=== PATIENT | female | born 1980 | race Caucasian/White ===

== ENCOUNTER 2020-03-19 14:52 | Outpatient (CLI) | payer OTHER, SELFPAY ==
--- NOTE | 2020-03-19 14:57 | MM_ITS ---
WS: [id number] BILATERAL DIGITAL SCREENING MAMMOGRAPHY WITH CAD CLINICAL INFORMATION: SCREENING HISTORY: Screening mammogram. No current complaints. COMPARISON: None. TECHNIQUE: Bilateral CC and MLO views. FINDINGS: The breasts are composed of heterogeneous fibroglandular density tissue, which can limit the detectio n of small underlying mass lesions. No suspicious mass, asymmetry, calcifications, or architectural d istortion. No evidence of malignancy. MM/[place] [id number] IMPRESSION: BI-RADS: 1-Negative FOLLOW UP: 1 Year Follow-up Recommend return to annual screening mammography.
== END 2020-03-19 14:53 | disposition home or self-care (01) ==
LOC: RADSHAW 14:55
PROVIDERS: PCP Family Medicine; Visit Provider Family Medicine
DX: Z12.31 Encounter for screening mammogram for malignant neoplasm of breast (principal)
CPT/HCPCS: 77067

== ENCOUNTER 2021-05-29 13:35 | Emergency (ER) | payer OTHER, SELFPAY ==
[2021-05-29] VITALS (9 sets, daily range): BP systolic 99–124; BP diastolic 70–88; PULSE 77–95; RESP 15–25; TEMP 36.7–36.8; O2SAT 92–100; BMI 25.0
--- NOTE | 2021-05-29 | XR_ITS ---
WS: [id number] Portable AP upright chest, 05/29/2021 Clinical Data: DYSPNEA Comparison: Portable chest, 01/17/2017. Findings: No nodules, masses or effusions are seen. The heart is normal. The pulmonary vascularity is not increased. No pneumonia or pneumothorax is seen. Monitor leads are on the chest wall. XR/XR chest 1V portable [id number] Impression: Negative chest.
--- NOTE | 2021-05-29 14:14 | ECG_ITS ---
[facility] Test Date: 2021-05-29 Pat Name: Elizabeth Carlson Department: Room: Gender: Female Parts Advisor: : 1980 Requested By: Antoine Ponce Order Number: [id number] Paras MD: Suzy Marion M.D. Measurements Intervals [place] Rate: 78 P: 9 NE: 148 QRS: 72 QRSD: 79 T: 54 QT: 385 QTc: 440 Interpretive Statements SINUS RHYTHM NONSPECIFIC T-WAVE ABNORMALITY Compared to ECG 01/17/2017 22:38:28 No significant changes Electronically Signed On 05-29-2021 20:37:11 CDT by Suzy Marion M.D. [id number]
--- NOTE | 2021-05-29 14:14 | XR_ITS ---
WS: [id number] Portable AP upright chest, 05/29/2021 Clinical Data: dypsnea Comparison: Portable chest, 01/17/2017. Findings: The heart is enlarged. The pulmonary vascularity is slightly increased. No pneumonia is pre sent. There is bilateral pleural thickening. There are small bilateral pleural effusions. The aortic arch and descending thoracic aorta are slightly tortuous. No pneumothorax is seen.
--- NOTE | 2021-05-29 14:14 | CT_ITS ---
WS: [id number] CT HEAD TECHNIQUE: Noncontrast CT of the head obtained from the skullbase to the vertex. CLINICAL INFORMATION: Symptoms of Acute Stroke COMPARISON: None. DLP: 847.[address] scans at [facility] use at least one of these dose optimization techniques: automated e xposure control; mA and/or kV adjustment per patient size (includes targeted exams where dose is matc hed to clinical indication); or iterative reconstruction. FINDINGS: No evidence of intracranial hemorrhage or mass effect. Ventricular system and basal cisterns are aguilera nt. No extra-axial fluid collections. No evidence of mass or mass effect. Normal flowers-white different iation. Paranasal sinuses and mastoid air cells are well aerated. .Normal visualized soft tissues. CT/CT head wo con* [id number] IMPRESSION: 1. No evidence of intracranial hemorrhage or mass effect. 2. Normal flowers-white differentiation. 3. No acute intracranial findings. Notification Antoine Hooks DO at 05/29/2021 2:41 PM.
--- NOTE | 2021-05-29 14:45 | W.ED.NEUROSD ---
HPI - Neuro Symptoms/Deficit General: Chief Complaint: Neuro Symptoms/Deficit Stated Complaint: H/A CONFUSION Time Seen by Provider: 05/29/21 14:11 History of Present Illness: HPI Narrative: 41-year-old female presents emergency room complaining of weakness on her left side difficulty with speech. She has a history of migraines she had a bit of a headache today but not what she would typically consider a migraine. She took several pcdo-cwh-tjntvhu medications for with no significant relief however it eventually did just seem to resolve on its own she does not have any pain now. She did have some pain earlier behind the left eye with associated visual changes. Her is with her and reports that she had some slurring of her speech but it has normalized with the time we seen him. Onset (ago): minute(s) Location: speech Severity: mild Quality: weak and improving Relieving factors: none Exacerbating factors: none Context: gradual onset Associated symptoms: Reports headache(s) and tingling; Deny chest pain, cough, diaphoresis, fevers/chills, anorexia, malaise, nausea, seizures, short of breath, syncope, vertigo, vomiting or weakness Treatments Prior to Arrival: Aspirin and other medication Review of Systems Const: Denies: malaise or diaphoresis ENMT: Denies: throat pain, ear or mastoid pain, nasal discharge or nasal congestion Card: Denies: chest pain or syncope Resp: Denies: dyspnea, productive cough or non-productive cough GI: Denies: nausea or vomiting : Denies: flank pain, difficulty voiding, dysuria, urinary frequency or urinary urgency Skin/Breast: Denies: rash or pruritus Neuro: Reports: headache(s); Denies: vertigo PFS ED PFSH: Medical History Psychiatric care Social History Smoking and tobacco status: never smoked Quit status (tobacco): has quit using tobacco Year quit tobacco: 2013 Second hand smoke exposure: No Smoking risk assessment/counseling performed?: No Alcohol intake: never Current gender identity: Female NIH stroke score NIHSS: Level Of Consciousness - 1a: 0 Level Of Consciousness Questions - 1b: Both Correct Level Of Consciousness Commands - 1c: Both Correct Best Gaze - 2: Normal Visual Puga - 3: No Visual Loss Facial Palsy - 4: Normal Motor Arm Right - 5: No Drift Motor Arm Left - 5: No Drift Motor Leg Right - 6: No Drift Motor Leg Left - 6: No Drift Limb Ataxia - 7: Absent Sensory - 8: Normal Best Language - 9: No Aphasia Dysarthia - 10: Normal Extinction And Inattention - 11: 0 Score: Total Score: 0 Physical Exam Const: COMMON NORMALS: no acute distress GENERAL APPEARANCE: cooperative and comfortable ORIENTATION/CONSCIOUSNESS: Yes awake, Yes oriented to person, Yes oriented to place and Yes oriented to time HENMT: COMMON NORMALS: normocephalic, atraumatic, hearing grossly normal bilaterally and external ears normal HEAD & SCALP: normocephalic and atraumatic EXTERNAL EAR: Yes external ears normal Eye: COMMON NORMALS: Equal, round and reactive pupils present, EOMs intact bilaterally, conjunctivae normal and no scleral icterus CONJUNCTIVA: Yes conjunctivae normal PUPIL: Yes Equal, round and reactive pupils present Neck/C-Spine: COMMON NORMALS: no JVD Resp: COMMON NORMALS: normal respiratory effort, No retractions, No use of accessory muscles and clear to auscultation bilaterally AUSCULTATION: clear to auscultation bilaterally Cardio: COMMON NORMALS: no JVD, regular rate, regular rhythm and No murmurs present (Cardio) RATE: regular rate RHYTHM: regular rhythm GI: COMMON NORMALS: Soft to palpation and No hepatosplenomegaly present AUSCULTATION: Yes normoactive bowel sounds PALPATION: Yes Soft to palpation, No Tenderness to palpation present (GI), No Guarding due to palpation present (GI) and Yes No hepatosplenomegaly present Extremity: COMMON NORMALS: normal to inspection, capillary refill normal, no clubbing, cyanosis or edema, no calf tenderness and no pedal edema Neuro: SENSORIUM/ORIENTATION: Yes oriented to person, Yes oriented to place and Yes oriented to time Skin: COMMON NORMALS: no rashes or lesions noted GENERAL SKIN EXAM: no rashes or lesions noted Course Vital Signs: Vital signs: Vital Signs Temperature 98.2 F 05/29/21 19:29 Pulse Rate 85 05/29/21 19:29 Respiratory Rate 16 05/29/21 19:29 Blood Pressure 117/78 05/29/21 19:29 Pulse Oximetry 96 05/29/21 19:29 MDM - Neuro Symptoms/Deficit MDM Narrative: Medical decision making narrative: Initially patient reported only mild headache during the course of the work-up however progressed to full-blown migraine when she has had in the past. Neurologically intact no focal neurologic deficits noted and her stroke score is 0. I think this is a migraine variant. Discussed the findings on the imaging and labs on the chart as they were reviewed. We will go ahead and treat for her migraine and then patient discharged home. Follow-up with your primary care doctor. Lab Data: Labs: Lab Results 05/29/21 05/29/21 05/29/21 14:25 14:25 14:25 WBC 6.4 10^3/uL 10^3/ uL (4.0-10.0) RBC 4.17 10^6/uL 10^6 /uL (4.1-5.3) Hgb 13.6 g/dL g/dL (11.5-15.3) Hct 40.8 % % (37.0-47.0) MCV 97.8 fl fl (81-99) MCH 32.6 pg pg (28.0-34.0) MCHC 33.3 g/dL g/dL (30.0-36.0) RDW 12.0 % L % (12.1-15.1) Plt Count 180 10^3/cmm 10^3 /cmm (130-400) MPV 11.3 fL H fL (7.4-10.4) Neut % (Auto) 53.1 % % Lymph % (Auto) 36.2 % % [place] % (Auto) 7.0 % % Eos % (Auto) 2.6 % % Baso % (Auto) 0.5 % % Neut # (Auto) 3.42 10^3/uL 10^3 /uL (1.8-7.7) Lymph # (Auto) 2.3 10^3/uL 10^3/ uL (0.8-4.8) [place] # (Auto) 0.5 10^3/uL 10^3/ uL (0.2-0.9) Eos # (Auto) 0.2 10^3/uL 10^3/ uL (0.0-0.8) Baso # (Auto) 0.0 10^3/uL 10^3/ uL (0.0-0.1) Nucleated RBC % (a uto) 0 % % Nucleated RBCs # 0.0 /100WBC /100W BC PT 13.50 SECONDS SEC ONDS (12.1-14.9) INR 1.00 (0.8-1.2) APTT 25.6 SECONDS SECO NDS (23.9-36.7) Sodium 137 mmol/L mmol/L (136-145) Potassium 3.8 mmol/L mmol/L (3.5-5.1) Chloride 104 mmol/L mmol/L (98-107) Carbon Dioxide 25 mmol/L mmol/L (22-29) Anion Gap 11.8 (5-19) BUN 16 mg/dL mg/dL (6-20) Creatinine 0.9 mg/dL mg/dL (0.5-0.9) GFR Calculation 68.7 mL/min L mL/ min (90-130) Glucose 88 mg/dL mg/dL (65-115) Calculated Osmolal ity 285 mOsm/kg mOsm/ kg (285-295) Calcium 9.3 mg/dL mg/dL (8.5-10.5) Total Bilirubin 0.2 mg/dL mg/dL (0.15-1.2) AST 13 U/L U/L (0-32) ALT 18 U/L U/L (0-33) Alkaline Phosphata se 64 IU/L IU/L (35-105) Total Protein 6.4 g/dL L g/dL (6.6-8.7) Albumin 4.2 g/dL g/dL (3.5-5.2) Globulin 2.2 g/dL g/dL (1.3-4.6) Urine Color Urine Appearance Urine pH Ur Specific Gravit y Urine Protein Urine Glucose (UA) Urine Ketones Urine Blood Urine Nitrate Urine Bilirubin Urine Urobilinogen Ur Leukocyte Shanda ase Urine Opiates Scre en Ur Barbiturates Sc reen Ur Phencyclidine S crn Ur Amphetamines Sc reen U Benzodiazepines Scrn Urine Cocaine Scre en U Marijuana (THC) Screen 05/29/21 05/29/21 14:25 14:25 WBC RBC Hgb Hct MCV MCH MCHC RDW Plt Count MPV Neut % (Auto) Lymph % (Auto) [place] % (Auto) Eos % (Auto) Baso % (Auto) Neut # (Auto) Lymph # (Auto) [place] # (Auto) Eos # (Auto) Baso # (Auto) Nucleated RBC % (a uto) Nucleated RBCs # PT INR APTT Sodium Potassium Chloride Carbon Dioxide Anion Gap BUN Creatinine GFR Calculation Glucose Calculated Osmolal ity Calcium Total Bilirubin AST ALT Alkaline Phosphata se Total Protein Albumin Globulin Urine Color Yellow (Yellow) Urine Appearance Clear (CLEAR) Urine pH 5 (5-7) Ur Specific Gravit y 1.020 (1.005-1.030) Urine Protein Neg (Negative) Urine Glucose (UA) Norm (Normal) Urine Ketones Negative (Negative) Urine Blood Neg (Negative) Urine Nitrate Negative (Negative) Urine Bilirubin Neg (Negative) Urine Urobilinogen Norm mg/dL mg/dL (Negative) Ur Leukocyte Shanda ase Negative (Negative) Urine Opiates Scre en Negative ng/mL ng /mL (Negative) Ur Barbiturates Sc reen Negative ng/mL ng /mL (Negative) Ur Phencyclidine S crn Negative ng/mL ng /mL (Negative) Ur Amphetamines Sc reen Negative ng/mL ng /mL (Negative) U Benzodiazepines Scrn Negative ng/mL ng /mL (Negative) Urine Cocaine Scre en Negative ng/mL ng /mL (Negative) U Marijuana (THC) Screen Positive ng/mL H ng/mL (Negative) Discharge Plan Discharge Patient Disposition: Home Clinical Impression: Migraine variant Condition: Stable Prescriptions: No Action omega-3 fatty acids [Fish Oil Concentrate] 1,000 mg capsule 1,000 mg PO DAILY RF: 0 cholecalciferol (vitamin D3) 10 mcg (400 unit) tablet 10 mcg PO DAILY RF: 0 prenat.vits,yessy,tjl-exus-hhxnv Tablet 1 tab PO DAILY RF: 0 buspirone 15 mg tablet 15 mg PO BID Qty: 180 RF: 1 propranolol 20 mg tablet 20 mg PO TID PRN (Reason: anxiety) Qty: 90 RF: 2 topiramate [Topamax] 50 mg tablet 50 mg PO BID Qty: 180 RF: 1 venlafaxine [Effexor XR] 150 mg capsule,extended release 24hr 300 mg PO DAILY Qty: 180 RF: 1 trazodone 150 mg tablet 150 mg PO BEDTIME RF: 0 Discharge Orders: Discharge ED (Routine); Ordered 05/29/21 Ordered By: Antoine Hooks Patient Instructions: Opioid Safety Coding Level of Care Code ED Language And Literature Division Chair for Chg Fwd Exam Comprehensive
[2021-05-29 15:03] LABS: Basophils % 0.5 %; Eosinophils # 0.2 10^3/uL (0.0-0.8); Eosinophils % 2.6 %; Hematocrit 40.8 % (37.0-47.0); Hemoglobin 13.6 g/dL (11.5-15.3); Lymphocytes # 2.3 10^3/uL (0.8-4.8); Lymphocytes % 36.2 %; Mean Corpuscular HGB Conc 33.3 g/dL (30.0-36.0); Mean Corpuscular Hemoglobin 32.6 pg (28.0-34.0); Mean Corpuscular Volume 97.8 fl (81-99); Mean Platelet Volume 11.3 fL (7.4-10.4); Monocytes # 0.5 10^3/uL (0.2-0.9); Neutrophils # 3.42 10^3/uL (1.8-7.7); Neutrophils % 53.1 %; Nucleated Red Blood Cells % 0 %; Platelet Count 180 10^3/cmm (130-400); Red Blood Count 4.17 10^6/uL (4.1-5.3); White Blood Count 6.4 10^3/uL (4.0-10.0)
[2021-05-29 15:08] LABS: Add Urine Microscopic? NO; Charge for UA Resulting for Rev
--- NOTE | 2021-05-29 15:10 | PC.NURSE ---
Received report from Camilo waiting on results.
[2021-05-29 15:11] LABS: Bilirubin Urine Neg (Negative); Blood Urine Neg (Negative); Glucose Urine UA Norm (Normal); Ketones Urine Negative (Negative); Leukocyte Esterase Urine Negative (Negative); Nitrate Urine Negative (Negative); Protein Urine Neg (Negative); Urine Appearance Clear (CLEAR); Urine Color Yellow (Yellow); Urobilinogen Urine Norm (Negative); pH Urine 5 (5-7)
[2021-05-29 15:20] LABS: Amphetamines Screen Urine Negative (Negative); Barbiturates Screen Urine Negative (Negative); Benzodiazepines Screen Urine Negative (Negative); Cocaine Screen Urine Negative (Negative); Opiate Screen Urine Negative (Negative); PCP Screen Urine Negative (Negative); THC Screen Urine Positive (Negative)
[2021-05-29 15:34] LABS: Partial Thromboplastin Time 25.6 SECONDS (23.9-36.7)
[2021-05-29 15:38] LABS: Alanine Aminotransferase 18 U/L (0-33); Albumin Level 4.2 g/dL (3.5-5.2); Alkaline Phosphatase 64 IU/L (35-105); Anion Gap 11.8 (5-19); Aspartate Amino Transferase 13 U/L (0-32); Blood Urea Nitrogen 16 mg/dL (6-20); Calcium 9.3 mg/dL (8.5-10.5); Carbon Dioxide 25 mmol/L (22-29); Chloride 104 mmol/L (98-107); Globulin 2.2 g/dL (1.3-4.6); Glomerular Filtration Rate 68.7 mL/min (90-130); Glucose 88 mg/dL (65-115); Osmolality Calculated 285 mOsm/kg (285-295); Potassium 3.8 mmol/L (3.5-5.1); Sodium 137 mmol/L (136-145); Total Bilirubin 0.2 mg/dL (0.15-1.2); Total Protein 6.4 g/dL (6.6-8.7)
--- NOTE | 2021-05-29 16:27 | PC.NURSE ---
at bedside. Pt waiting on results. No needs, except I haven't received medication yet . Reviewed with pt waiting for results. No change in pain per pt affected by the light, pt stated she has a history of H/A and follows up with Neurologist in the past.
[2021-05-29] MEDS: sodium chloride 0.9% 1,000 ML 999 ML IV (17:51)
[2021-05-29] MEDS: ketorolac 30 mg/mL INJ IVP (17:52)
[2021-05-29] MEDS: diphenhydrAMINE 50 mg/mL SDV 1mL IVP (17:55)
[2021-05-29] MEDS: promethazine 25 mg/mL SDV 1 mL IM (17:58)
== END 2021-05-29 19:31 | disposition home or self-care (01) ==
PROVIDERS: Emergency Provider Family Medicine
DX: G43.809 Other migraine, not intractable, without status migrainosus (principal); Z87.891 Personal history of nicotine dependence
CPT/HCPCS: 70450; 71045; 80053; 80306; 81003; 85025; 85610; 85730; 93005; 96361; 96372; 96374; 99284; J1200; J1885; J2550; J7030

== ENCOUNTER → 2021-11-21 14:56 | Outpatient (BNVA) | payer OTHER, SELFPAY | PROVIDERS: Visit Provider Psychiatry & Neurology Psychiatry | DX: F41.1 Generalized anxiety disorder (principal); F33.1 Major depressive disorder, recurrent, moderate | CPT/HCPCS: 84443 ==

== ENCOUNTER 2022-11-20 09:40 | Outpatient (CLI) | payer OTHER, SELFPAY ==
--- NOTE | 2022-11-20 | XR_ITS ---
WS: [id number] Chest 2 views, 11/20/2022 Clinical Data: SUBACUTE COUGH Comparison: Portable chest, 05/29/2021 Findings: No nodules, masses or effusions are seen. The heart is normal. The pulmonary vascularity is not increased. No pneumonia or pneumothorax is seen. XR/XR chest 2V* [id number] Impression: Negative chest.
--- NOTE | 2022-11-20 09:49 | MM_ITS ---
WS: [id number] BILATERAL SCREENING DIGITAL TOMOSYNTHESIS MAMMOGRAM WITH CAD HISTORY: SCREENING COMPARISON: 03/19/2020 Bilateral CC and MLO views with tomosynthesis and synthetic mammography submitted. Computer aided det ection analyzed. Breast composition: The breasts are heterogeneously dense, which may obscure small masses. No suspici ous masses, microcalcifications or architectural distortion. Bilateral upper outer quadrant lymph nod es. MM/[place] [id number] IMPRESSION: BI-RADS: 2-Benign FOLLOW UP: 1 Year Follow-up
== END 2022-11-20 09:41 | disposition home or self-care (01) ==
PROVIDERS: PCP Family Medicine; Visit Provider Family Medicine
DX: Z12.31 Encounter for screening mammogram for malignant neoplasm of breast (principal); R05.9 Cough, unspecified
CPT/HCPCS: 71046; 77063; 77067

== ENCOUNTER 2023-06-01 22:43 | Emergency (ER) | payer OTHER, SELFPAY ==
[2023-06-01 22:51] VITALS: BP 107/74; PULSE 110; RESP 18; TEMP 36.6; O2SAT 97; BMI 24.7
--- NOTE | 2023-06-01 22:52 | ED_ITS ---
HPI - Headache General: Chief Complaint: Headache Stated Complaint: Head and Neck Pain Time Seen by Provider: 06/01/23 22:52 History of Present Illness: 43-year-old female comes in today for complaints of severe headache with neck discomfort for the last 2 days. Patient gone to the chiropractor yesterday and today with no improvement in her neck or headache pain. Patient reports right- sided headache. Patient does have a history of migraine headaches. Patient reports that this is the worst headache she is ever had. Patient appears nontoxic. No focal neural deficits are noted. Patient is sensitive to light. Associated symptoms: Reports nausea; Deny chest pain, fever(s) or vomiting Review of Systems Const: Denies: fever(s) Card: Denies: chest pain Resp: Denies: dyspnea GI: Reports: nausea; Denies: vomiting Musc: Reports: neck pain Neuro: Reports: headache(s) PFS ED PFSH: Medical History Psychiatric care Social History Smoking and tobacco status: former smoker Quit status (tobacco): has quit using tobacco Year quit tobacco: 2013 Second hand smoke exposure: No Smoking risk assessment/counseling performed?: No Alcohol intake: never Desire information about alcohol rehabilitation?: No Counseling given: No Substance/Drug Use: never Desire information about substance/drug rehabilitation?: No Counseling given: No Current gender identity: Female Physical Exam Const: COMMON NORMALS: alert HENMT: COMMON NORMALS: normocephalic HEAD & SCALP: normocephalic Neck/C-Spine: COMMON NORMALS: full ROM and no meningeal signs CERVICAL SPINE: No Cervical spine tenderness and Yes Paracervical muscle tenderness Resp: COMMON NORMALS: normal respiratory effort and clear to auscultation bilaterally AUSCULTATION: clear to auscultation bilaterally Cardio: COMMON NORMALS: regular rate and regular rhythm RATE: regular rate RHYTHM: regular rhythm GI: COMMON NORMALS: non-tender Back/Pelvis: COMMON NORMALS: thoracic and lumbar spine normal to inspection Neuro: SENSORIUM/ORIENTATION: Yes alert MENINGEAL SIGNS: Yes no meningeal signs Skin: COMMON NORMALS: turgor normal GENERAL SKIN EXAM: turgor normal Course Vital Signs: Vital signs: Vital Signs Temperature 97.9 F 06/02/23 01:13 Pulse Rate 110 H 06/02/23 01:13 Respiratory Rate 18 06/02/23 01:13 Blood Pressure 107/74 06/02/23 01:13 Pulse Oximetry 97 06/02/23 01:13 Oxygen Delivery Me thod Room Air 06/01/23 22:51 MDM - Headache Medical Decision Making 43-year-old female comes in today for complaints of headache and neck pain. Patient reports increased neck and headache pain over the last 2 days. Patient denies any injuries or fall. Patient did seek treatment at chiropractor. Patient does have a history of migraines. No focal neural deficits are noted. Patient is light sensitive. Bilateral TMs are normal. Abdomen soft nontender. Patient has muscle tenderness on the right paracervical muscles. Differential diagnosis includes not limited to subarachnoid hemorrhage, dissected vertebral artery of the neck, tension headache, migraine headache. CT of the head was normal. CT of the cervical spine and noticed several areas of cervical degeneration of the disks. There is some stenosis noted in the facet joints. Patient was medicated for a migraine cocktail with improvement of symptoms. Patient be continued on steroids and celecoxib for pain and inflammation. Patient was also written for a few hydrocodone for severe pain. Patient was recommended to follow-up with primary care for further evaluation and treatment regarding the neck pain. Lab Data Radiology Impressions Cervical Spine CT 06/01/23 23:00 IMPRESSION: 1. No acute cervical spine fracture or spondylolisthesis. 2. Cervical spondylosis as described above. Head CT 06/01/23 23:00 IMPRESSION: No acute intracranial findings. All radiology interpretation(s) finalized by discharge Discharge Plan Discharge Patient Disposition: Home Clinical Impression: Degenerative cervical disc Headache Qualifiers: Headache type: unspecified Headache chronicity pattern: acute headache Intractability: not intractable Qualified Code(s): R51.9 - Headache, unspecified Condition: Stable Prescriptions: New prednisone 20 mg tablet 20 mg PO BID 5 Days Qty: 10 0RF celecoxib 200 mg capsule 200 mg PO BID Qty: 20 0RF hydrocodone-acetaminophen 5-325 mg tablet 1 tab PO Q8H PRN (Reason: pain (scale score 7-10)) Qty: 6 0RF No Action prenat.vits,yessy,tpb-hedr-yijoc Tablet 1 tab PO DAILY cholecalciferol (vitamin D3) 10 mcg (400 unit) tablet 10,000 unit PO DAILY Aimovig Autoinjector 70 mg/mL auto-injector SUBCUT .Monthly bupropion HCl [Wellbutrin XL] 300 mg tablet extended release 24 hr 300 mg PO QAM Qty: 90 0RF buspirone 10 mg tablet 10 mg PO BID Qty: 180 0RF trazodone 150 mg tablet 150 mg PO BEDTIME Qty: 90 0RF venlafaxine [Effexor XR] 150 mg capsule,extended release 24hr 300 mg PO DAILY Qty: 180 0RF propranolol 20 mg tablet 20 mg PO TID PRN (Reason: anxiety) Qty: 90 2RF topiramate 100 mg tablet 100 mg PO BID Qty: 60 2RF Discharge Orders: Discharge ED (Routine); Ordered 06/02/23 Ordered By: Antonino Robb Referrals: Sana Carrasco DO [Primary Care Provider] - Patient Instructions: Opioid Safety, Pain Management Coding Level of Care Code ED Viner Operator for Alyssa Pierce
--- NOTE | 2023-06-01 23:00 | CTR_ITS ---
PROCEDURE INFORMATION: Exam: CT Head Without Contrast Exam date and time: 06/01/2023 11:38 PM Age: 43 years old Clinical indication: Pain; Headache not specified; Additional info: Severe headache TECHNIQUE: Imaging protocol: Computed tomography of the head without contrast. Radiation optimization: All CT scans at this facility use at least one of these dose optimization techniques: automated exposure control; mA and/or kV adjustment per patient size (includes targeted exams where dose is matched to clinical indication); or iterative reconstruction. REPORTING DATA: Count of CT and Cardiac NM exams in prior 12 months: This patient has received 0 known CTs and 0 known cardiac nuclear medicine studies in the 12 months prior to the current study. COMPARISON: CT head wo con* [id number] 05/29/2021 2:25 PM RADIATION DOSE METRICS: Total DLP (mGy-cm): 1095.58 FINDINGS: Brain: No acute intracranial hemorrhage, abnormal extra-axial fluid collection, mass effect, or midline shift. Cerebral ventricles: The ventricular system is within normal limits of variation for the patient's age. Paranasal sinuses: Visualized paranasal sinuses are grossly unremarkable. No air fluid levels. Mastoid air cells: Visualized mastoid air cells are well aerated. Bones/joints: No acute fracture. Soft tissues: Grossly unremarkable. CT/CT head wo con* [id number] IMPRESSION: No acute intracranial findings.
--- NOTE | 2023-06-01 23:00 | CTR_ITS ---
PROCEDURE INFORMATION: Exam: CT Cervical Spine Without Contrast Exam date and time: 06/01/2023 11:41 PM Age: 43 years old Clinical indication: Neck pain and other: Headache; Additional info: Severe headache with neck pain TECHNIQUE: Imaging protocol: Computed tomography of the cervical spine without contrast. Radiation optimization: All CT scans at this facility use at least one of these dose optimization techniques: automated exposure control; mA and/or kV adjustment per patient size (includes targeted exams where dose is matched to clinical indication); or iterative reconstruction. REPORTING DATA: Count of CT and Cardiac NM exams in prior 12 months: This patient has received 0 known CTs and 0 known cardiac nuclear medicine studies in the 12 months prior to the current study. COMPARISON: CT head wo con* [id number] 06/01/2023 11:38 PM RADIATION DOSE METRICS: Total DLP (mGy-cm): 200.97 FINDINGS: Bones/joints: No acute cervical spine fracture or spondylolisthesis. Multilevel intervertebral disc space narrowing along with posterior disc osteophyte complexes, uncovertebral joint hypertrophic changes, and facet arthropathy appears to result in up to severe stenosis of the neural foramina. No spinal canal stenosis. Lungs: Lung apices are grossly unremarkable. Soft tissues: Grossly unremarkable. CT/CT cervical spin wo con* [id number] IMPRESSION: 1. No acute cervical spine fracture or spondylolisthesis. 2. Cervical spondylosis as described above.
[2023-06-01] MEDS: ketorolac 30 mg/mL INJ 15 MG IVP (23:08)
[2023-06-01] MEDS: diphenhydrAMINE 50 mg/mL SDV 1mL 12.5 MG IVP (23:08)
[2023-06-01] MEDS: dexamethasone 10 mg/mL INJ 6 MG IVP (23:13)
[2023-06-01] MEDS: metoclopramide 5 mg/mL SDV 2 mL 10 MG IVP (23:17)
[2023-06-02 01:13] VITALS: BP 107/74; PULSE 110; RESP 18; TEMP 36.6; O2SAT 97
== END 2023-06-02 01:20 | disposition home or self-care (01) ==
PROVIDERS: Emergency Provider Nurse Practitioner Family; PCP Family Medicine
DX: M47.812 Spondylosis without myelopathy or radiculopathy, cervical region (principal); Z87.891 Personal history of nicotine dependence; R51.9 Headache, unspecified
CPT/HCPCS: 70450; 72125; 96374; 96375; 99285; J1100; J1200; J1885; J2765

== ENCOUNTER → 2024-08-07 15:07 | Outpatient (BNVA) | payer OTHER, SELFPAY | PROVIDERS: PCP Family Medicine; Visit Provider Specialist | DX: M25.561 Pain in right knee (principal); M25.562 Pain in left knee; G89.29 Other chronic pain | CPT/HCPCS: 73560; 73565 ==

== ENCOUNTER 2024-08-23 08:24 | Day surgery (SDC) | payer OTHER, SELFPAY ==
[2024-08-23] VITALS (9 sets, daily range): BP systolic 102–123; BP diastolic 68–81; PULSE 87–99; RESP 13–18; TEMP 36.1–36.2; O2SAT 97–100
[2024-08-23] MEDS: sodium chloride 0.9% 500 ML 15 ML IV (09:00)
[2024-08-23] MEDS: ondansetron 2 mg/ML SDV 2 mL 4 MG IVP ×2 (09:02→11:44)
--- NOTE | 2024-08-23 09:51 | W.PM.OPSUD ---
Surgery/Procedure H&P Update DATE OF PROCEDURE: August 23, 2024 DATE H&P PERFORMED: 08/14/24 H&P UPDATE INFORMATION: I have reviewed H&P completed within last 30 days, I have examined patient prior to procedure and No changes to prior documentation PLANNED PROCEDURE: Operation Date: 08/23/24 09:30 Proposed Procedures p EGD [id number], 20310, G0105, K92.1(Not Applicable) - DO andrea Ramírez Colonoscopy(Not Applicable) - Blaise Huber DO
--- NOTE | 2024-08-23 09:57 | P.ANESASSM_ITS ---
Pre-Anesthetic Assessment Height/Weight: Height 1.7 m Weight 65.771 kg Temp Pulse Resp BP Pulse Ox 97.1 F L 97 18 103/77 100 08/23/24 08:45 08/23/24 08:45 08/23/24 08:45 08/23/24 08:45 08/23/24 08:45 Operation Date: 08/23/24 09:30 Proposed Procedures p EGD [id number], 80812, G0105, K92.1(Not Applicable) - DO andrea Ramírez Colonoscopy(Not Applicable) - Blaise Huber DO Familial anesthetic complications: None Was Beta Billie taken within 24 hours: N/A Was Clonidine taken within 24 hours: N/A Last intake: Intake Last Liquid Date 08/22/24 Last Liquid Time 22:00 Last Solid Date 08/21/24 Last Solid Time 21:00 Social No alcohol and No tobacco Exam alert, oriented x 3, clear to auscultation bilaterally and regular rate & rhythm Airway Mallampati: Class II Dentition: full GI Gastroesophageal Reflux Disease Anesthetic Plan ASA status: 2 Anesthesia: MAC Risk of > 500 ml blood loss (7ml/kg in children): No Other Pertinent Information Threw up stomach contents 3x this morning, last time was not that much, states no longer nauseated since being given zofran Medications/Allergies Home Medications Medication Instructions Recorded Confirmed Last Taken Type prenat.vits,yessy,ocu-itvj-hppcb 1 tab PO DAILY 03/20/20 08/21/24 08/22/24 History erenumab-aooe 70 mg/mL 70 mg SUBCUT .Monthly 11/21/21 08/21/24 07/17/24 History subcutaneous auto-injector (Aimovig Autoinjector) cholecalciferol (vitamin D3) 10 10,000 unit PO DAILY 01/25/23 08/21/24 08/22/24 History mcg (400 unit) tablet bupropion HCl 300 mg 24 hr tablet, 300 mg PO QAM #90 tabs 08/11/24 08/21/24 08/22/24 Rx extended release (Wellbutrin XL) buspirone 10 mg tablet 10 mg PO BID #180 tabs 08/11/24 08/21/24 08/22/24 Rx propranolol 20 mg tablet 20 mg PO TID PRN anxiety #90 tabs 1208/21/24 08/22/24 Rx topiramate 100 mg tablet 100 mg PO BID #180 tabs 08/11/24 08/21/24 08/22/24 Rx trazodone 150 mg tablet 150 mg PO BEDTIME #90 tabs 08/11/24 08/21/24 08/22/24 Rx venlafaxine 150 mg 300 mg (2 x 150 mg) PO DAILY #180 08/11/24 08/21/24 08/22/24 Rx capsule,extended release 24 hr caps (Effexor XR) linaclotide 290 mcg capsule 290 mcg PO DAILY 30 days #30 caps 08/14/24 08/21/24 08/22/24 Rx (Linzess) omeprazole 40 mg capsule,delayed 40 mg PO DAILY 08/14/24 08/21/24 08/22/24 History release Allergies Allergy/AdvReac Type Severity Reaction Status Date / Time adhesive tape Allergy ALGY-Rash Verified 08/14/24 11:10 Current Medications Generic Name Dose Route Start Last Admin Trade Name Freq PRN Reason Stop Dose Admin Sodium Chloride 500 mls @ 15 mls/hr 08/23/24 08:25 08/23/24 09:00 Sodium Chloride 0.9% IV 08/24/24 08:24 15 mls/hr .Q24H PRN Administration COLONOSCOPY FLUIDS Ondansetron HCl 4 mg 08/23/24 08:25 08/23/24 09:02 Ondansetron 2 Mg/Ml Sdv 2 Ml IVP 4 mg Q15M PRN Administration Nausea/Vomiting PACU PHASE II [facility] Anesthesia Medical History Psychiatric care Social History Smoking and tobacco/nicotine status: former use of tobacco/nicotine Quit status (tobacco/nicotine): has quit using Year quit tobacco: 2013 Second hand smoke exposure: No Alcohol intake: never Substance/Drug Use: never Current gender identity: Female Data Anesthesia Cardiac Studies: No Data to Display
--- NOTE | 2024-08-23 12:15 | ANE.PACU2 ---
Inpatient post-anesthesia follow up: Airway intact: Yes Vital signs: Temperature 97.0 F Pulse Rate 89 Respiratory Rate 18 Blood Pressure 111/81 Pulse Oximetry 97 Oxygen Delivery Me thod Room Air Oxygen Flow Rate Fraction of Inspir ed Oxygen Hydration adequate: Yes Nausea and vomiting: No Pain level: 1 Mental status: Baseline
== END 2024-08-23 12:15 | disposition home or self-care (01) ==
PROVIDERS: PCP Family Medicine; Visit Provider Surgery
PROC: 0DJ08ZZ Inspection of Upper Intestinal Tract, Via Natural or Artificial Opening Endoscopic (ICD-10-PCS; CPT 43235; principal; 2024-08-23 09:30)
PROC: 0DJD8ZZ Inspection of Lower Intestinal Tract, Via Natural or Artificial Opening Endoscopic (ICD-10-PCS; CPT 45378; 2024-08-23 09:30)
DX: K59.04 Chronic idiopathic constipation (principal); K92.1 Melena; K29.50 Unspecified chronic gastritis without bleeding; K64.8 Other hemorrhoids; K21.9 Gastro-esophageal reflux disease without esophagitis; Z87.891 Personal history of nicotine dependence
CPT/HCPCS: 43239; 45378; 88305; 88342; J0330; J2250; J2405; J2704; J7040

== ENCOUNTER 2024-09-08 12:47 | Outpatient (CLI) | payer OTHER, SELFPAY ==
--- NOTE | 2024-09-08 13:00 | MR_ITS ---
WS: [id number] MRI RIGHT KNEE HISTORY: right knee pain COMPARISON: None available. Anterior cruciate ligament: Intact. Posterior cruciate ligament: Intact. Medial collateral ligament: Intact. Posterior lateral corner structures: Intact. Medial menisci: Intact. Normal signal, size and shape. Lateral meniscus: Intact. Normal signal, size and shape. Extensor mechanism: Distal quadriceps tendon and patellar tendons are intact. Fluid and soft tissue: Very small amount of fluid in the suprapatellar bursa. No Dumont's cyst. Osseous and articular structures: Patellofemoral compartment: Moderate narrowing of the lateral patellofemoral joint space with diffuse chondromalacia. Lateral subluxation of the patella. Chondromalacia continues through the patellar em inence. No marrow edema or fracture. Medial compartment: Normal. Lateral compartment: Normal. MR/MR knee RT wo con* [id number] IMPRESSION: 1. No meniscal or ACL tear. 2. 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 Moderate narrowing of the lateral patellofemoral joint space. 3. No marrow edema or fracture.
== END 2024-09-08 12:48 | disposition home or self-care (01) ==
PROVIDERS: PCP Family Medicine; Visit Provider Specialist
DX: M22.41 Chondromalacia patellae, right knee (principal); S83.206A Unspecified tear of unspecified meniscus, current injury, right knee, initial encounter; X58.XXXA Exposure to other specified factors, initial encounter; R93.6 Abnormal findings on diagnostic imaging of limbs
CPT/HCPCS: 73721

== ENCOUNTER 2024-10-11 06:26 | Emergency (ER) | payer OTHER, SELFPAY ==
[2024-10-11 06:30] VITALS: BP 107/76; PULSE 87; RESP 12; TEMP 36.8; O2SAT 100; BMI 21.6
[2024-10-11] MEDS: prochlorperazine 10 mg/2 mL Inj IVP (06:44)
[2024-10-11] MEDS: diphenhydrAMINE 50 mg/mL SDV 1mL 25 MG IVP (06:44)
[2024-10-11] MEDS: ondansetron 2 mg/ML SDV 2 mL 8 MG IVP (06:44)
[2024-10-11] MEDS: sodium chloride 0.9% 1,000 ML 999 ML IV (06:45)
--- NOTE | 2024-10-11 06:46 | ED_ITS ---
HPI - Abdominal Pain 2 General: Chief Complaint: Abdominal Pain Stated Complaint: abd pain,weakness,mirgraine Time Seen by Provider: 10/11/24 06:34 History of Present Illness: 44-year-old female with a history of chr onic abdominal issues. She has episodes of vomiting. She has been followed by general surgery and she has a follow-up at [facility]. She says she will have episodes where she vomits for several days and she will get very down . She says this time it has gotten to her quite a bit and she feels very weak and tired. She feels like she may be dehydrated. No focal abdominal tenderness. No dysuria. No fevers. This is not much different than previous episodes other than that she feels much more drained she says. Related Data Home Medications ?Medication ?Instructions ?Recorded ?Confirmed prenat.vits,yessy,fpf-xrbe-roqkd 1 tab PO DAILY 03/20/20 10/11/24 erenumab-aooe 70 mg/mL 70 mg SUBCUT .Monthly 10/11/24 subcutaneous auto-injector (Aimovig Autoinjector) cholecalciferol (vitamin D3) 10 10,000 unit PO DAILY 0 01/25/23 10/11/24 mcg (400 unit) tablet omeprazole 40 mg capsule,delayed 40 mg PO DAILY 10/11/24 release ondansetron 4 mg disintegrating 4 mg PO DAILY 10/11/24 10/11/24 tablet Previous Rx's ?Medication ?Instructions ?Recorded bupropion HCl 300 mg 24 hr tablet, 300 mg PO QAM #90 t abs 08/11/24 extended release (Wellbutrin XL) buspirone 10 mg tablet 10 mg PO BID #180 tabs 08/11 propranolol 20 mg tablet 20 mg PO TID PRN anxiety #90 tabs 08/11/24 topiramate 100 mg tablet 100 mg PO BID #180 tabs 02/27 trazodone 150 mg tablet 150 mg PO BEDTIME #90 tabs 1 10/12/23 venlafaxine 150 mg 300 mg (2 x 150 mg) PO DAILY #180 08/11/24 capsule,extended release 24 hr caps (Effexor XR) linaclotide 290 mcg capsule 290 mcg PO DAILY 30 days # 30 caps 08/14/24 (Linzess) ondansetron 8 mg disintegrating 8 mg PO Q6H #14 tabs 0 10/11/24 tablet promethazine 25 mg rectal 25 mg RI Q6H PRN nausea and 10/11/24 suppository vomiting #12 ea Allergies Allergy/AdvReac Type Severity Reaction Status Date / Time adhesive tape Allergy ALGY-Rash Verified 10/02/24 16:40 Review of Systems 2 Narrative: Constitutional symptoms: Negative except as documented in HPI. Skin symptoms: Negative except as documented in HPI. Eye symptoms: Negative except as documented in HPI. ENMT symptoms: Negative except as documented in HPI. Respiratory symptoms: Negative except as documented in HPI. Cardiovascular symptoms: Negative except as documented in HPI. Gastrointestinal symptoms: Negative except as documented in HPI. Genitourinary symptoms: Negative except as documented in HPI. Musculoskeletal symptoms: Negative except as documented in HPI. Neurologic symptoms: Negative except as documented in HPI. Psychiatric symptoms: Negative except as documented in HPI. Endocrine symptoms: Negative except as documented in HPI. PFSH ED 2 PFSH: Medical History Psychiatric care Surgical History H/O foot surgery H/O knee surgery History of hysterectomy History of laparoscopic cholecystectomy History of back surgery Social History Smoking and tobacco/nicotine status: former use of tobacco/nicotine Quit status (tobacco/nicotine): has quit using Year quit tobacco: 2013 Second hand smoke exposure: No Alcohol intake: never Substance/Drug Use: never Current gender identity: Female Physical Exam 2 Narrative: EXAM NARRATIVE: General: Alert, no acute distress. Skin: Warm, dry. Head: Normocephalic, atraumatic. Neck: Supple, trachea midline. Eye: Extraocular movements are intact. Ears, nose, mouth and throat: Dry oral mucosa Cardiovascular: Regular, Normal peripheral perfusion. Respiratory: Lungs are clear to auscultation, respirations are non-labored, breath sounds are equal, Symmetrical chest wall expansion. Gastrointestinal: Soft, Nontender, Non distended Musculoskeletal: Normal ROM, no deformity. Neurological: Alert and oriented, No focal neurological deficit observed. Psychiatric: Cooperative, appropriate mood & affect. Course 2 Vital Signs: Vital signs: Vital Signs Temperature 98.2 F 10/11/24 06:30 Pulse Rate 86 10/11/24 08:13 Respiratory Rate 18 10/11/24 07:14 Blood Pressure 108/89 10/11/24 08:13 Pulse Oximetry 98 10/11/24 08:13 Oxygen Delivery Me thod Room Air 10/11/24 06:47 MDM - Abdominal Pain Medical Decision Making Medical decision making: Differential diagnosis for this patient with nausea and vomiting including but not limited to and based on the above HPI, review of systems and physical exam: Urinary tract infection. Appendicitis. Cholecystis. colitis. small bowel obstruction. crohn's flare. pancreatitis. gastritis. peptic ulcer. cyclic vomiting. Viral illness. Influenza. COVID. Orders placed to evaluate differential diagnosis based on the above differential, HPI and physical exam Lab Review: Laboratory results were reviewed and interpreted by myself the emergency room physician. No leukocytosis. No anemia. No renal failure. Patient is positive for COVID- 19. I reviewed the patient's medical record. Reexamination: Patient feeling somewhat better. She has been given fluids and antiemetics. No increased work of breathing. No altered mental status. Assessment and plan: COVID-19 Dehydration Cyclic vomiting ? Normal saline bolus, IV Zofran, Compazine and Benadryl - Discharged home - Discussed plan with patient. Answered any questions. - Evaluation and treatment of this problem were appropriate in the emergency setting. Lab Data 10/11/24 06:40 10/11/24 06:40 Labs/Radiology: Laboratory Results WBC 10.63 10^3/uL (3.29-11.43) 10/11/24 06:40 RBC 4.90 10^6/uL (3.85-5.65) 10/11/24 06:40 Hgb 15.20 g/dL (11.27-16.99) 10/11/24 06:40 Hct 46.5 % (36-47) 10/11/24 06:40 MCV 94.9 fl (85-98) 10/11/24 06:40 MCH 31.0 pg (27-33) 10/11/24 06:40 MCHC 32.7 g/dL (30-55) 10/11/24 06:40 RDW 12.4 % (12.1-15.1) 10/11/24 06:40 Plt Count 210 10^3/cmm (157-399) 10/11/24 06:40 MPV 11.2 fL (7.4-10.4) H 10/11/24 06:40 Neut % (Auto) 76.4 % 10/11/24 06:40 Lymph % (Auto) 14.1 % 10/11/24 06:40 [place] % (Auto) 7.2 % 10/11/24 06:40 Eos % (Auto) 1.8 % 10/11/24 06:40 Baso % (Auto) 0.2 % 10/11/24 06:40 Neut # (Auto) 8.12 10^3/uL (1.8-7.7) H 10/11/24 06:40 Lymph # (Auto) 1.5 10^3/uL (0.8-4.8) 10/11/24 06:40 [place] # (Auto) 0.8 10^3/uL (0.2-0.9) 10/11/24 06:40 Eos # (Auto) 0.2 10^3/uL (0.0-0.8) 10/11/24 06:40 Baso # (Auto) 0.0 10^3/uL (0.0-0.1) 10/11/24 06:40 Nucleated RBC % (auto) 0 % 10/11/24 06:40 Nucleated RBCs # 0.0 /100WBC 10/11/24 06:40 Sodium 137 mmol/L (136-145) 10/11/24 06:40 Potassium 3.7 mmol/L (3.5-5.1) 10/11/24 06:40 Chloride 102 mmol/L (98-107) 10/11/24 06:40 Carbon Dioxide 22 mmol/L (22-29) 10/11/24 06:40 Anion Gap 16.7 (5-19) 10/11/24 06:40 BUN 11 mg/dL (6-20) 10/11/24 06:40 Creatinine 0.8 mg/dL (0.5-0.9) 10/11/24 06:40 GFR Calculation 77.6 mL/min (90-130) L 10/11/24 06:40 Glucose 97 mg/dL (65-115) 10/11/24 06:40 Calculated Osmolality 283 mOsm/kg (285-295) L 10/11/24 06:40 Calcium 9.6 mg/dL (8.5-10.5) 10/11/24 06:40 Total Bilirubin 0.7 mg/dL (0.15-1.2) 10/11/24 06:40 AST 14 U/L (0-32) 10/11/24 06:40 ALT 15 U/L (0-33) 10/11/24 06:40 Alkaline Phosphatase 106 U/L (35-105) H 10/11/24 06:40 Total Protein 7.4 g/dL (6.6-8.7) 10/11/24 06:40 Albumin 4.6 g/dL (3.5-5.2) 10/11/24 06:40 Globulin 2.8 g/dL (1.3-4.6) 10/11/24 06:40 Urine Color Yellow (Yellow) 10/11/24 08:11 Urine Appearance Clear (CLEAR) 10/11/24 08:11 Urine pH 6.5 (5-7) 10/11/24 08:11 Ur Specific [place] 1.012 (1.005-1.030) 10/11/24 08:11 Urine Protein Negative (Negative) 10/11/24 08:11 Urine Glucose (UA) Negative (Normal) 10/11/24 08:11 Urine Ketones 1+ (Negative) H 10/11/24 08:11 Urine Blood Negative (Negative) 10/11/24 08:11 Urine Nitrate Negative (Negative) 10/11/24 08:11 Urine Bilirubin Negative (Negative) 10/11/24 08:11 Urine Urobilinogen 1.0 mg/dL (Negative) 10/11/24 08:11 Ur Leukocyte Esterase Negative (Negative) 10/11/24 08:11 Urine RBC 0-2 /hpf (0-2) 10/11/24 08:11 Urine WBC 0-5 /hpf (0-5) 10/11/24 08:11 Ur Squamous Epith Cells 0-5 /hpf (0-5) 10/11/24 08:11 Amorphous Sediment Not Reportable 10/11/24 08:11 Urine Bacteria None seen /hpf (NONE) 10/11/24 08:11 Hyaline Casts 1.21 /lpf 10/11/24 08:11 Coronavirus (PCR) Positive (Negative) A 10/11/24 06:40 Influenza A (PCR) Negative (Negative) 10/11/24 06:40 Influenza Type B (PCR) Negative (Negative) 10/11/24 06:40 RSV (PCR) Negative (Negative) 10/11/24 06:40 No radiology studies performed this visit Discharge Plan Discharge Patient Disposition: Home Clinical Impression: COVID-19, Dehydration, Cyclical vomiting Condition: Stable Prescriptions: New promethazine 25 mg suppository 25 mg RI Q6H PRN (Reason: nausea and vomiting) Qty: 12 0RF ondansetron 8 mg tablet,disintegrating 8 mg PO Q6H Qty: 14 0RF Rx Instructions: Take 1/2-1 tab every 6 hours as needed for nausea and vomiting No Action prenat.vits,yessy,syh-kpup-xgcfa Tablet 1 tab PO DAILY cholecalciferol (vitamin D3) 10 mcg (400 unit) tablet 10,000 unit PO DAILY Aimovig Autoinjector 70 mg/mL auto-injector 70 mg SUBCUT .Monthly omeprazole 40 mg capsule,delayed release(DR/EC) 40 mg PO DAILY Linzess 290 mcg capsule 290 mcg PO DAILY 30 Days Qty: 30 11RF bupropion HCl [Wellbutrin XL] 300 mg tablet extended release 24 hr 300 mg PO QAM Qty: 90 1RF buspirone 10 mg tablet 10 mg PO BID Qty: 180 1RF propranolol 20 mg tablet 20 mg PO TID PRN (Reason: anxiety) Qty: 90 2RF topiramate 100 mg tablet 100 mg PO BID Qty: 180 1RF trazodone 150 mg tablet 150 mg PO BEDTIME Qty: 90 1RF venlafaxine [Effexor XR] 150 mg capsule,extended release 24hr 300 mg PO DAILY Qty: 180 1RF ondansetron 4 mg tablet,disintegrating 4 mg PO DAILY Discharge Orders: Discharge ED (Routine); Ordered 10/11/24 Ordered By: Yanci Renteria Referrals: Sana Carrasco DO [Primary Care Provider] - Discharge Diet: Advance as tolerated Discharge Activity: Increase activity as tolerated Patient Instructions: How to Recover from COVID-19 at Home (ED), Opioid Safety, Pain Management Activity Restrictions/Additional Instructions: Thank you for choosing [facility] for your healthcare needs today. Please realize this is an emergency room and that we are providing you with a medical screening exam and this may not be complete and all inclusive of all the testing and or work up that you may need to determine your ailment or severity of your illness. You have been screened and evaluated and felt safe for discharge. Health conditions do change or evolve sometimes and as such it is important that you follow up with your Primary Doctor to be re checked, 3-5 days is a general good time frame for follow up. You are always welcome to return to the ED for re assessment if your symptoms are worsening or you have new concerns Print Language: Monegasque Coding Level of Care Code ED [facility] Counselor for Alyssa Pierce
[2024-10-11 06:47] VITALS: BP 116/80; PULSE 95; RESP 25; O2SAT 99
[2024-10-11 06:53] LABS: Basophils % 0.2 %; Eosinophils # 0.2 10^3/uL (0.0-0.8); Eosinophils % 1.8 %; Hematocrit 46.5 % (36-47); Lymphocytes # 1.5 10^3/uL (0.8-4.8); Lymphocytes % 14.1 %; Mean Corpuscular HGB Conc 32.7 g/dL (30-55); Mean Corpuscular Volume 94.9 fl (85-98); Mean Platelet Volume 11.2 fL (7.4-10.4); Monocytes # 0.8 10^3/uL (0.2-0.9); Monocytes % 7.2 %; Neutrophils # 8.12 10^3/uL (1.8-7.7); Neutrophils % 76.4 %; Nucleated Red Blood Cells % 0 %; Platelet Count 210 10^3/cmm (157-399); Red Cell Distribution Width 12.4 % (12.1-15.1); White Blood Count 10.63 10^3/uL (3.29-11.43)
[2024-10-11 07:06] LABS: Alanine Aminotransferase 15 U/L (0-33); Albumin Level 4.6 g/dL (3.5-5.2); Alkaline Phosphatase 106 U/L (35-105); Anion Gap 16.7 (5-19); Aspartate Amino Transferase 14 U/L (0-32); Blood Urea Nitrogen 11 mg/dL (6-20); Calcium 9.6 mg/dL (8.5-10.5); Carbon Dioxide 22 mmol/L (22-29); Chloride 102 mmol/L (98-107); Creatinine Clr Calc Pharmacy 86.9162; Globulin 2.8 g/dL (1.3-4.6); Glomerular Filtration Rate 77.6 mL/min (90-130); Glucose 97 mg/dL (65-115); Osmolality Calculated 283 mOsm/kg (285-295); Potassium 3.7 mmol/L (3.5-5.1); Sodium 137 mmol/L (136-145); Total Bilirubin 0.7 mg/dL (0.15-1.2); Total Protein 7.4 g/dL (6.6-8.7)
[2024-10-11 07:14] VITALS: BP 97/60; PULSE 97; RESP 18; O2SAT 98
--- NOTE | 2024-10-11 07:34 | PC.NURSE ---
this nurse informed pt of need for urine sample, pt denies need to pee currently, requesting to wait until fluids completed.
[2024-10-11 07:46] LABS: Influenza A NEGATIVE (Negative); Influenza B NEGATIVE (Negative); Respiratory Syncytial Virus Ce NEGATIVE (Negative)
[2024-10-11 08:00] LABS: Covid PCR Positive (Negative)
[2024-10-11 08:13] VITALS: BP 108/89; PULSE 86; O2SAT 98
[2024-10-11 08:43] LABS: Bilirubin Urine Negative (Negative); Blood Urine Negative (Negative); Glucose Urine UA Negative (Normal); Ketones Urine 1+ (Negative); Leukocyte Esterase Urine Negative (Negative); Nitrate Urine Negative (Negative); Protein Urine Negative (Negative); Specific Gravity, Urine 1.012 (1.005-1.030); Urine Appearance Clear (CLEAR); Urine Color Yellow (Yellow); pH Urine 6.5 (5-7)
[2024-10-11 08:46] LABS: Bacteria Urine None Seen /hpf; Hyaline Casts Urine 1.21 /lpf; RBC Urine 0-2 /hpf (0-2); Squamous Epithelial Cell Urine 0-5 /hpf (0-5); WBC Urine 0-5 /hpf (0-5)
== END 2024-10-11 08:23 | disposition home or self-care (01) ==
PROVIDERS: Emergency Provider Emergency Medicine; PCP Family Medicine
DX: U07.1 COVID-19 (principal); E86.0 Dehydration; Z11.52 Encounter for screening for COVID-19; Z87.891 Personal history of nicotine dependence
CPT/HCPCS: 80053; 81001; 85025; 87637; 96374; 96375; 99284; J0780; J1200; J2405; J7030

== ENCOUNTER 2024-10-23 10:13 | Outpatient (CLI) | payer OTHER, SELFPAY ==
--- NOTE | 2024-10-23 10:19 | CT_ITS ---
WS: [id number] Exam: CT abdomen pelvis w con* [id number] Date/Time of Exam: 10/23/2024 10:25 AM Reason For Exam: ABNOMAL WEIGHT LOSS DLP: 313.[address] scans at [facility] use at least one of these dose optimization techniques: automated exposure control; mA and/or kV adjustment per patient size (includes targeted exams where dose is matched to clinical indication); or iterative reconstruction. Lower lung zones are clear. Pectus excavatum. The liver, stomach, spleen and pancreas appear normal. The gallbladder is surgically absent. 1 cm cyst in the RIGHT kidney. The kidneys are otherwise normal. No renal obstruction. The abdominal aorta is normal in caliber. The IVC is patent. Normal adrenal glands. Small bowel loops are normal in caliber. Moderate amount of stool in the colon. The cecum lies in the RIGHT pelvis. Normal appendix visualized. No lymphadenopathy or mass identified. No pelvic mass or lymphadenopathy. The uterus is surgically absent. Urinary bladder is smooth in contour. No abdominal wall defects. No destructive bone lesions. Disc degeneration at L4-5. Bilateral hip DJD. CT/CT abdomen pelvis w con* [id number] IMPRESSION: 1. No mass, lymphadenopathy or acute finding in the abdomen or pelvis. Addition al nonacute findings as above.
[2024-10-23] MEDS: iohexol 350 mg/mL 500 mL Btl (per mL) PO (11:30)
[2024-10-23] MEDS: iohexol 350 mg/mL 500 mL Btl (per mL) IV (11:50)
== END 2024-10-23 10:14 | disposition home or self-care (01) ==
LOC: RAD 10:14
PROVIDERS: PCP Family Medicine; Visit Provider Family Medicine
DX: R63.4 Abnormal weight loss (principal); R11.0 Nausea; R10.9 Unspecified abdominal pain; R91.8 Other nonspecific abnormal finding of lung field; N28.1 Cyst of kidney, acquired; Z98.890 Other specified postprocedural states; M51.369 Other intervertebral disc degeneration, lumbar region without mention of lumbar back pain or lower extremity pain; M16.0 Bilateral primary osteoarthritis of hip
CPT/HCPCS: 74177

== ENCOUNTER 2024-11-17 16:40 | Outpatient (CLI) | payer OTHER, SELFPAY ==
--- NOTE | 2024-11-17 16:50 | USR_ITS ---
PROCEDURE INFORMATION: Exam: US Retroperitoneal, Complete, Kidneys and Bladder Exam date and time: 11/17/2024 4:53 PM Age: 44 years old Clinical indication: Condition or disease; Kidney or ureter condition; Cyst of kidney; Additional info: Right renal cyst TECHNIQUE: Imaging protocol: Real-time ultrasound of the retroperitoneum with image documentation. Complete exam focused on the bilateral kidneys and urinary bladder. COMPARISON: CT abdomen pelvis w con* [id number] 10/23/2024 11:37 AM FINDINGS: Right kidney: Benign-appearing right renal cyst. Left kidney: Left kidney appears unremarkable. Urinary bladder: Decompressed due to recent void. US/US renal BI* [id number] IMPRESSION: 1. No concerning findings. 2. Benign-appearing right renal cysts which corresponds to the CT findings on 10/23/2024.
== END 2024-11-17 16:41 | disposition home or self-care (01) ==
PROVIDERS: PCP Family Medicine; Visit Provider Family Medicine
DX: N28.1 Cyst of kidney, acquired (principal)
CPT/HCPCS: 76770

== ENCOUNTER 2024-12-26 14:19 | Outpatient (CLI) | payer OTHER, SELFPAY ==
--- NOTE | 2024-12-26 14:20 | MM_ITS ---
WS: [id number] VIEWS: MLO and CC views both breasts. 3D digital tomosynthesis is also included in this exam. Comparison made with prior exam of 03/19/2020 and 11/20/2022.. Findings: The breasts are heterogeneously dense, which may obscure small masses. No sign of suspicious mass, tumor calcification or architectural distortion. MM/MM scr BI tomosynthesis [id number] Impression: BI-RADS: 2 - Benign FOLLOW-UP: 1 Year Follow-up This mammogram was also analyzed by the Computer Aided Detection System R2 Imag e [employer].
== END 2024-12-26 14:20 | disposition home or self-care (01) ==
LOC: MOBLMAM 14:21
PROVIDERS: PCP Family Medicine; Visit Provider Family Medicine
DX: Z12.31 Encounter for screening mammogram for malignant neoplasm of breast (principal); R92.333 Mammographic heterogeneous density, bilateral breasts
CPT/HCPCS: 77063; 77067

== ENCOUNTER 2025-04-03 10:34 | Emergency (ER) | payer OTHER, SELFPAY ==
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
--- OUTSIDE RECORDS SUMMARY | 2025-04-02 07:08 | XMS_ITS | Encounter Summary ---
Author Name [facility] [facility] [place] Address [address] [place] [address] Support Name Relationship Address Phone VICKY LLOYD Next of Kin [address] [place] [phone] VICKY LLOYD Emergency Contact [address] [place] [phone] Insurance Providers: All historical and current [...] PRESCRIPT ION COX Mar 06, 2013 COX [id number] [phone] Roverto LLOYD PATIENT Selected Encounter This section includes the information on record at [place] for the Encounter. Date/Time Encounter Type Encounter Description Reason Pro vider Source Apr 02, 2025 12:08 PM Outpatient Encounter TELEPHONE [facility] Encounter Template Text not used by [place] Plan of Treatment: Future Appointments (+ 6 months) and Future Tests (+/- 45 days) The Plan of Treatment section includes future care activities for the patient from all [place] treatmentfacilities. This section includes future appointments and future orders which are active, pending or scheduled. Future Appointments This section includes appointments that were scheduled to occur 6 months from the date of the Encounter, up to a maximum of 20 appointments. The data comes from all [place] treatment facilities. Appointment Date/Time Appointment Type Appointme nt Facility Name Apr 12, 2025 02:00 PM AMBULATORY - MEDICINE [facility] Apr 19, 2025 10:30 AM [facility] - MEDICINE [facility] Active, Pending, and Scheduled Orders This section includes a listing of several types of active, pending, and scheduled orders, including clinic medications orders, diagnostic test orders, procedure orders and consult orders; where the start date of the order is 45 days before the date of the Encounter or 45 days after the date of theEncounter. The data comes from all [place] treatment facilities. Test Date/Time Test Type Test Details Facility Name Mar 14, 2025 11:49 AM Consult Order PB-BHIP OU TPT 657A4 Cons [employer] PIPO [facility] Social History: Smoking Status (Most current) and Tobacco Use (All prior to encounter date) This section includes the most current, and the historical, smoking and tobacco- related health factors from the [place] facility where the Encounter took place. Current Smoking Status This section includes the most current smoking, or tobacco-related health factor, from the [place] facility where the Encounter took place. Date/Time Current Smoking Status Comment Diann pearson Mar 28, 2025 12:07 PM VA-TOBACCO USE FOR [facility] [employer] [facility] Tobacco Use History This section includes a history of the smoking, or tobacco-related health factors, that were collected on or before the date of the Encounter. The data comes from the [place] facility where the Encounter took place. Date/Time Smoking Status/Tobacco Use Comment F rhys Mar 28, 2025 12:07 PM VA-TOBACCO USE FOR JOR[facility] [employer] [facility] Encounter Notes: All associated encounter notes This section contains the clinical notes associated to the Encounter. Date/Time Encounter Note(s) Provider Source Apr 02, 2025 02:02 PM ADDENDUM: LOCAL TITLE: Addendum STANDARD TITLE: ADDENDUM DATE OF NOTE: APR 02, 2025@14:02:17 ENTRY DATE: APR 02, 2025@14:02:18 AUTHOR: AUDREY MITCHELLIGNER: URGENCY: STATUS: COMPLETED Spoke with patient letting her know that all providers that this AMSA found has appointments at [phone] and one provider had the option of [phone]. 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 This AMSA let her know that a note would be placed to see if there is a provider elsewhere that would be able to fit her timeframe via VVC. /[facility]o [facility] Signed: 04/02/2025 14:05 Receipt Acknowledged By: * AWAITING SIGNATURE * FIDENCIO WILSON 04/02/2025 14:11 /JAIME Rice LPN * AWAITING SIGNATURE * KATHLEEN BISHOP === --- Original Document --- 04/02/25 [facility] NURSING NOTE PB: Total time spent 10 minutes Spoke to in response to BHIP Consult. Two person identifiers were used. denied SI/HI @ this time. They also denied the need to see/speak to a provider today, as there is a provider available and willing to see/speak w/ them. [place] is reminded of UC hours, Same Day Access, and [place]'s Crisis Line #. Alerting U[facility]UL[facility] in [facility], to call back and schedule appt in [place] for therapy via vvc. They also were offered phone/CVT/f2f, but prefers vvc, instead. /JAIME Rice LPN Signed: 04/02/2025 12:10 Receipt Acknowledged By: 04/02/2025 13:07 /agusto [facility] 04/02/2025 ADDENDUM STATUS: COMPLETED Attempted to contact to schedule VVC appointment with counselor. Left voicemail. Letter mailed. kylah [facility] Signed: 04/02/2025 13:08 AUDREY MITCHELL [facility] Apr 02, 2025 12:08 PM MENTAL HEALTH NURS ING NOTE: LOCAL TITLE: [facility] NURSING NOTE PB STANDARD TITLE: MENTAL HEALTH NURSING NOTE DATE OF NOTE: APR 02, 2025@12:08 ENTRY DATE: APR 02, 2025@12:08:45 AUTHOR: SAVANNAH BRANHAM COSIGNER: URGENCY: STATUS: COMPLETED [facility] NURSING NOTE PB Has ADDENDA Total time spent 10 minutes Spoke to in response to IP Consult. Two person identifiers were used. [place] denied SI/HI @ this time. They also denied the need to see/speak to a provider today, as there is a provider available and willing to see/speak w/ them. [place] is reminded of UC hours, Same Day Access, and 's Crisis Line #. Alerting [facility] in [facility], to call back and schedule appt in [place] for therapy via vvc. They also were offered phone/CVT/f2f, but prefers vvc, instead. /JAIME Rice LPN Signed: 04/02/2025 12:10 Receipt Acknowledged By: 04/02/2025 13:07 /starla/ AUDREY [facility] 04/02/2025 ADDENDUM STATUS: COMPLETED Attempted to contact to schedule VVC appointment with counselor. Left voicemail. Letter mailed. /agusto [facility] Signed: 04/02/2025 13:08 04/02/2025 ADDENDUM STATUS: COMPLETED Spoke with patient letting her know that all providers that this AMSA found has appointments at [phone] and one provider had the option of [phone]. 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 This AMSA let her know that a note would be placed to see if there is a provider elsewhere that would be able to fit her timeframe via VVC. /agusto [facility] Signed: 04/02/2025 14:05 Receipt Acknowledged By: * AWAITING SIGNATURE * FIDENCIO WILSON * AWAITING SIGNATURE * YONAS,SAVANNAH JAVI * AWAITING SIGNATURE * KATHLEEN BISHOP JAMEY PHILLIP [facility]
[2025-04-03] VITALS (7 sets, daily range): BP systolic 94–118; BP diastolic 53–72; PULSE 72–98; RESP 14–20; TEMP 36.4; O2SAT 95–100
--- OUTSIDE RECORDS SUMMARY | 2025-04-03 10:41 | XMS_ITS | Continuity of Care Document ---
Author Name [facility] Organization [facility] Care Team Providers Care Director Apparel Name Role Phone [facility] Unavailable Unavailable Problems Combined list of problems from Department of Defense and Veterans Affairs facilities. It does not include entries that were removed or entered in error. Problem Status Onset Date Problem Type Date of Resolution Comments Source Major Depression, recurrent (ICD-9-CM 296.30) Active Condition [facility] Diagnosis: ICD-10-CM F43.12 Post-traumatic stress disorder, chronic Active Diagnosis [facility] Diagnosis: ICD-10-CM F41.9 Anxiety disorder, unspecified Active Diagnosis [facility] Medications Combined list of outpatient medications from Department of Defense and Veterans Affairs facilities.Medications provided include 1) outpatient medications from the last 15 months, and 2) patient-reported medications. Medication Details Route Status Patient Instructions Prescription Expires Prescription Number Last Dispense Date Ordering Provider Order Date Order Qty Source ATOMOXETINE 40MG CAP TAKE ONE CAPSULE BY MOUTH EVERY MORNING FOR 6 DAYS, THEN TAKE TWO CAPSULES EVERY MORNING FOR INATTENT ION ORAL ACTIVE 03/31/2026 [id number] 5 HEATHER ARRINGTON R 2024 180 [facility] BUSPIRONE HCL 10MG TAB TAKE ONE TABLET BY MOUTH TWICE A DAY FOR ANXIETY DO NOT TAKE WITH GRAPEFRU IT JUICE. ORAL ACTIVE 03/31/2026 [id number] 5 HEATHER ARRINGTON R 2024 180 [facility] PROPRANOLOL HCL 40MG TAB TAKE ONE-HALF TABLET BY MOUTH THREE TIMES A DAY NEEDED FOR ANXIETY ORAL ACTIVE 03/31/2026 [id number] 5 HEATHER ARRINGTON R 2024 90 [facility] TRAZODONE HCL 100MG TAB TAKE ONE AND ONE-HALF TABLETS BY MOUTH AT BEDTIME FOR INSOMNIA ORAL ACTIVE 03/31/2026 [id number] 5 HEATHER ARRINGTON R 2024 135 [facility] VENLAFAXINE HCL 150MG 24HR CAP,SA TAKE TWO CAPSULES BY MOUTH ONCE A DAY FOR ANXIETY AND DEPRESSI ON WITH FOOD. DO NOT ABRUPTLY DISCONTI NUE MEDICATI ON. ORAL ACTIVE 03/31/2026 [id number] 5 HEATHER ARRINGTON Craig R 2024 180 [facility] Allergies, Adverse Reactions, Alerts Combined list of allergies from Department of Defense and Veterans Affairs facilities. It does not include entries that were removed or entered in error. Substance Category Reaction Severity Reaction type Status Date Reported Comments Source No Known Allergies Drug allergy (disorder) active 8 [facility] PLASTIC TAPE Propensity to adverse reaction (finding) Eruption active 5 [facility] Immunizations Combined list of available immunizations from the Department of [facility] and Veterans Affairs facilities. Immunization Series Date Given Administered By Site Reaction Lot Number CVX Code Drug Store Operations Associate Status Comments Source COVID-19 (MODERNA), MRNA, LNP-S, PF, 50 MCG/0.5 ML (AGES 12+ YEARS) 6 2023 312 complet ed HISTORICA L INFORMATI ON - FROM OTHER [facility], [facility] INFLUENZA, SPLIT VIRUS, TRIVALENT, PF 4 2023 140 complet ed HISTORICA L INFORMATI ON - FROM OTHER [facility], [facility] COVID-19 (MODERNA), MRNA, LNP-S, PF, 50 MCG/0.5 ML (AGES 12+ YEARS) 5 2022 312 complet ed HISTORICA L INFORMATI ON - FROM OTHER REGISTRY, [facility] TDAP 1 2022 115 complet ed HISTORICA L INFORMATI ON - FROM OTHER [facility], [facility] COVID-19 (MODERNA), MRNA, LNP-S, BIVALENT, PF, 50 MCG/0.5 ML OR 25MCG/0.25 ML DOSE 4 2021 229 complet ed HISTORICA L INFORMATI ON - FROM OTHER [facility], [facility] INFLUENZA, SPLIT VIRUS, QUADRIVALENT, PF 3 2021 150 complet ed HISTORICA L INFORMATI ON - FROM OTHER [facility], [facility] COVID-19 (MODERNA), MRNA, LNP-S, PF, 100 MCG/0.5ML DOSE OR 50 MCG/0.25ML DOSE 3 2020 207 complet ed HISTORICA L INFORMATI ON - FROM OTHER [facility], [facility] INFLUENZA, SPLIT VIRUS, QUADRIVALENT, PF 2 2020 150 complet ed HISTORICA L INFORMATI ON - FROM OTHER REGISTRY, [facility] COVID-19 (PFIZER), MRNA, LNP-S, PF, 30 MCG/0.3 ML DOSE 2 2020 208 complet ed HISTORICA L INFORMATI ON - FROM OTHER REGISTRY, [facility] COVID-19 (PFIZER), MRNA, LNP-S, PF, 30 MCG/0.3 ML DOSE 1 2020 208 complet ed HISTORICA L INFORMATI ON - FROM OTHER [facility], [facility] INFLUENZA, SPLIT VIRUS, TRIVALENT, PRESERVATIVE 1 2012 141 complet ed HISTORICA L INFORMATI ON - FROM OTHER REGISTRY, [facility] Vital Signs Combined list of inpatient and outpatient Vital Signs from Department of Defense and Veterans Affairs, ranging from 12 months to all on record, depending upon the facility. Vital Sign Value Date Comments Source SYSTOLIC BLOOD PRESSURE 111 03/29/2025 10:00:[facility] DIASTOLIC BLO[facility] PRESSURE 78 03/29/2025 10:00:00 [facility] PULSE OXIMETRY 98 % 03/29/2025 [facility]:00[facility] WEIGHT 133.1 03/29/2025 10:00:00 [facility] BMI 21 kg/m2 03/29/2025 10:00:00 [facility] PAIN 4 03/29/2025 10:00:00 [facility] HEIGHT 67 03/29/2025 10:00:00 [facility] TEMPERATURE 98.7 03/29/2025 10:00:00 [facility] PULSE 102 03/29/2025 10:00:00 [facility] RESPIRATION 20 03/29/2025 10:00:00 [facility] Encounters Combined list of: 1) Encounters from Department of Veterans Affairs facilities going backup to the last 18 months, not all [place] inpatient encounters are included; 2) Encounters from the Department of Defense facilities going backup to 280 months. Location Location Details Encounter Type Encounter Number Reason For Visit Attending Provider ADM Date DC Date Status Disposition Source [facility] Outpatient Encounter [id number] 05/29 [facility] Outpatient Encounter [id number] 05/29 [facility] Outpatient Encounter [id number] 03/12 [facility] Outpatient Encounter [id number] 03/12 [facility] Outpatient Encounter [id number] HITESH BISHOP L 03/12 [facility] Outpatient Encounter [id number] 03/12 [facility] PH1 ASSMT&MGMT NQHP 21-30 [id number] Diagnos is: ICD-10- CM F41.9 Anxiety disorde r, unspeci fied CARMENZA HART T 03/13 [facility] Outpatient Encounter [id number] 03/19 [facility] Outpatient Encounter [id number] 03/28 [facility] Outpatient Encounter [id number] JOSH HENRY 03/28 [facility] OFFICE O/P [place] 60 MIN [id number] Diagnos is: ICD-10- CM F43.12 Post-tr aumatic stress disorde r, chronic GILLIAN ARRINGTON 03/29 [facility] Outpatient Encounter [id number] 04/02 [facility] Procedures Combined list of: 1) Procedures from Department of [facility] Affairs facilities going back up to thelast 18 months, not all [place] non-surgical procedures are included; 2) All procedures from the Department of Defense facilities. Procedure Procedure Type Code Date Perfomer Comments Sourc e MEASLES, MUMPS AND RUBELLA VIRUS VACCINE (MMR), LIVE, FOR SUBCUTANEOUS USE 07/11/2001 [facility] FOOT INSERT, REMOVABLE, FORMED TO PATIENT FOOT, EACH 06/27/2001 [facility] FOOT INSERT, REMOVABLE, FORMED TO PATIENT FOOT, EACH 06/17/2001 [facility] FOOT INSERT, REMOVABLE, FORMED TO PATIENT FOOT, EACH 06/15/2001 [facility] FOOT DROP SPLINT, RECUMBENT POSITIONING DEVICE, PREFABRICATED, PIN-[id number] 06/07/2001 [facility] COLPOSCOPY OF THE CERVIX INCLUDING UPPER/ADJACENT VAGINA; 04/11/2001 [facility] DETERMINATION OF REFRACTIVE STATE 02/08/2001 [facility] CARE ONLY (SEPARATE PROCEDURE) 01/17/2001 [facility] OTHER ARTIFICIAL RUPTURE OF MEMBRANES 11/29/2000 [facility] MANUAL REMOVAL OF RETAINED PLACENTA 11/29/2000 [facility] PELVIC EXAMINATION UNDER ANESTHESIA (OTHER THAN LOCAL) 11/28/2000 [facility] EDUCATIONAL SUPPLIES, SUCH A S BOOKS, TAPES, AND PAMPHLETS, FOR THE PATIENT'S EDUCATION AT COST TO PHYSICIAN OR OTHER QUALIFIED HEALTH MANAGER [employer] 11/25/2000 [facility] PELVIC EXAMINATION UNDER ANESTHESIA (OTHER THAN LOCAL) 11/19/2000 [facility] CULTURE, BACTERIAL, DEFINITIVE; THROAT OR NOSE 10/05/2000 [facility] ULTRASOUND, UTERUS, REAL TIME WITH IMAGE DOCUMENTATION, AND MATERNAL EVALUATION, AFTER FIRST TRIMESTER (> OR = 14 WEEKS 0 DAYS), TRANSABDOMINAL APPROACH; SINGLE OR FIRST GESTATION 08/17/2000 [facility] DETERMINATION OF REFRACTIVE STATE 06/28/2000 [facility] ROUTINE OBSTETRIC CARE INCLUDING ANTEPARTUM CARE, VAGINAL DELIVERY (WITH OR WITHOUT EPISIOTOMY, AND/OR FORCEPS) AND CARE 06/23/2000 [facility] SKIN TEST; TUBERCULOSIS, INTRADERMAL 05/24/2000 [facility] ROUTINE OBSTETRIC CARE INCLUDING ANTEPARTUM CARE, VAGINAL DELIVERY (WITH OR WITHOUT EPISIOTOMY, AND/OR FORCEPS) AND CARE 05/24/2000 [facility] PHYS/OTH QUALIFIED HEALTH MANAGER MULTIM[employer]IA QUALIFIED,EDUCATION,TRAIN,LIC ENSURE/REGULATION (WHEN APPLICABLE) EDUC SER RENDERED TO PATS IN A GRP SETTING (EG,,OBESITY,OR DIABETIC INSTRUCT) 04/27/2000 [facility] EDUCATIONAL SUPPLIES, SUCH A S BOOKS, TAPES, AND PAMPHLETS, FOR THE PATIENT'S EDUCATION AT COST TO PHYSICIAN OR OTHER QUALIFIED HEALTH MANAGER MULTIMEDIA 04/27/2000 [facility] ULTRASOUND, UTERUS, REAL TIME WITH IMAGE DOCUMENTATION, AND MATERNAL EVALUATION, AFTER FIRST TRIMESTER (> OR = 14 WEEKS 0 DAYS), TRANSABDOMINAL APPROACH; SINGLE OR FIRST GESTATION 04/23/2000 [facility] ULTRASOUND, UTERUS, REAL TIME WITH IMAGE DOCUMENTATION, AND MATERNAL EVALUATION, AFTER FIRST TRIMESTER (> OR = 14 WEEKS 0 DAYS), TRANSABDOMINAL APPROACH; SINGLE OR FIRST GESTATION 04/13/2000 [facility] EDUCATIONAL SUPPLIES, SUCH A S BOOKS, TAPES, AND PAMPHLETS, FOR THE PATIENT'S EDUCATION AT COST TO PHYSICIAN OR OTHER QUALIFIED HEALTH MANAGER MULTIMEDIA 06/24/2004 [facility] OPHTHALMOLOGICAL SERVICES: MEDICAL EXAMINATION AND EVALUATION WITH INITIATION OF DIAGNOSTIC AND TREATMENT PROGRAM; COMPREHENSIVE, NEW PATIENT, 1 OR MORE VISITS 05/26/2004 [facility] INDIVIDUAL PSYCHOTHERAPY, INSIGHT ORIENTED, BEHAVIOR MODIFYING AND/OR SUPPORTIVE, IN AN OFFICE OR OUTPATIENT FACILITY, APPROXIMATELY 45 TO 50 MINUTES [id number] WITH THE PATIENT 05/06/2004 [facility] SCREENING PAPANICOLAOU SMEAR ; OBTAINING, PREPARING AND CONVEYANCE OF CERVICAL OR VAGINAL SMEAR TO LABORATORY 04/22/2004 [facility] FAMILY PSYCHOTHERAPY (CONJOINT PSYCHOTHERAPY) (WITH PATIENT PRESENT), 50 MINUTES 02/18/2004 [facility] INDIVIDUAL PSYCHOTHERAPY, INSIGHT ORIENTED, BEHAVIOR MODIFYING AND/OR SUPPORTIVE, IN AN OFFICE OR OUTPATIENT FACILITY, APPROXIMATELY 45 TO 50 MINUTES [id number]-[id number]-[id number] WITH THE PATIENT 02/12/2004 [facility] INDIVIDUAL PSYCHOTHERAPY, INSIGHT ORIENTED, BEHAVIOR MODIFYING AND/OR SUPPORTIVE, IN AN OFFICE OR OUTPATIENT FACILITY, APPROXIMATELY 20 TO 30 MINUTES [id number] WITH THE PATIENT 01/15/2004 [facility] INDIVIDUAL PSYCHOTHERAPY, INSIGHT ORIENTED, BEHAVIOR MODIFYING AND/OR SUPPORTIVE, IN AN OFFICE OR OUTPATIENT FACILITY, APPROXIMATELY 45 TO 50 MINUTES [id number] WITH THE PATIENT 01/10/2004 [facility] INJECTION, PROMETHAZINE HCL, UP TO 50 MG 12/28/2003 [facility] EXCISION, BENIGN LESION INCLUDING MARGINS, EXCEPT SKIN TAG (UNLESS LISTED ELSEWHERE), TRUNK, ARMS OR LEGS; EXCISED DIAMETER 0.5 CM OR LESS 11/09/2003 [facility] REMOVAL OF INTRAUTERINE DEVICE (IUD) 03/16/2003 [facility] THERAPEUTIC, PROPHYLACTIC OR DIAGNOSTIC INJECTION (SPECIFY MATERIAL INJECTED); SUBCUTANEOUS OR INTRAMUSCULAR 11/23/2002 [facility] DETERMINATION OF REFRACTIVE STATE 09/12/2002 [facility] SESAMOIDECTOMY, FIRST TOE (SEPARATE PROCEDURE) 05/19/2002 [facility] SUPP &MATERIAL (EXCEPT SPECTACLE),PROVID,THE PHYS/OTH QUALIFIED HEALTH MANAGER MULTIMEDIA OVER &ABOVE THOSE USUALLY INCLD W THE OFFICE VISIT/OTH SER RENDERED (LIST DRUG,TRAYS,SUPP,OR MATERIAL PROVID) 05/18/2002 [facility] INDIVIDUAL PSYCHOTHERAPY, INSIGHT ORIENTED, BEHAVIOR MODIFYING AND/OR SUPPORTIVE, IN AN OFFICE OR OUTPATIENT FACILITY, APPROXIMATELY 45 TO 50 MINUTES AVGV-TT-[id number] WITH THE PATIENT 05/15/2002 [facility] INDIVIDUAL PSYCHOTHERAPY, INSIGHT ORIENTED, BEHAVIOR MODIFYING AND/OR SUPPORTIVE, IN AN OFFICE OR OUTPATIENT FACILITY, APPROXIMATELY 45 TO 50 MINUTES SJER-[id number]-[id number] WITH THE PATIENT 04/17/2002 [facility] APPLICATION OF SHORT LEG MUSTAPHA T (BELOW KNEE TO TOES); 02/17/2002 [facility] APPLICATION OF SHORT LEG MUSTAPHA T (BELOW KNEE TO TOES); WALKING OR AMBULATORY TYPE 02/14/2002 [facility] INSERTION OF INTRAUTERINE DEVICE (IUD) 11/30/2001 [facility] INDIVIDUAL PSYCHOTHERAPY, INSIGHT ORIENTED, BEHAVIOR MODIFYING AND/OR SUPPORTIVE, IN AN OFFICE OR OUTPATIENT FACILITY, APPROXIMATELY 20 TO 30 MINUTES [id number] W THE PATIENT; W MED EVAL & MGT SER 10/18/2001 [facility] INDIVIDUAL PSYCHOTHERAPY, INSIGHT ORIENTED, BEHAVIOR MODIFYING AND/OR SUPPORTIVE, IN AN OFFICE OR OUTPATIENT FACILITY, APPROXIMATELY 45 TO 50 MINUTES HUBL-RN-EQUN WITH THE PATIENT 10/18/2001 [facility] INDIVIDUAL PSYCHOTHERAPY, INSIGHT ORIENTED, BEHAVIOR MODIFYING AND/OR SUPPORTIVE, IN AN OFFICE OR OUTPATIENT FACILITY, APPROXIMATELY 45 TO 50 MINUTES [id number]-[id number] WITH THE PATIENT 10/03/2001 [facility] INDIVIDUAL PSYCHOTHERAPY, INSIGHT ORIENTED, BEHAVIOR MODIFYING AND/OR SUPPORTIVE, IN AN OFFICE OR OUTPATIENT FACILITY, APPROXIMATELY 20 TO 30 MINUTES XQOM-[id number] W THE PATIENT; W MED EVAL & MGT SER 10/03/2001 [facility] PSYCHIATRIC DIAGNOSTIC INTERVIEW EXAMINATION 09/19/2001 [facility] EDUCATIONAL SUPPLIES, SUCH A S BOOKS, TAPES, AND PAMPHLETS, FOR THE PATIENT'S EDUCATION AT COST TO PHYSICIAN OR OTHER QUALIFIED HEALTH MANAGER MULTIMEDIA 08/04/2001 [facility] Social History Combined list of available smoking, tobacco, and other social history from Department of Defense and Veterans Affairs facilities. Social History Type Response Date Comment Sourc e Tobacco smoking status NHIS VA-TOBACCO USE FORMER CIGARETTES 03/28/2025 [facility] History of tobacco use VA-TOBACCO NEVER USED OTHER TYPE 03/28/2025 [facility] History of tobacco use CURRENT SMOKER 04/04/2004 [facility] History of tobacco use TOBACCO CESSATION REFUSED 08/24/2003 [facility] History of tobacco use CURRENT SMOKELESS TOBACCO USER 03/05/2003 [facility] This section is an empty social history section. [facility] Plan of Care List of future care activities from Department of Veterans Affairs facilities. Additional future care activities may be listed in the Assessment and Plan section. Date/Time Care Activity Care Activity Detail Facili ty 04/12/2025 AMBULATORY - MEDICINE AMBULATORY - MEDICI [facility]
--- OUTSIDE RECORDS SUMMARY | 2025-04-03 10:50 | XMS_ITS | Clinical Summary ---
Author Organization [facility] Address [address] [place] [address] Care Team Providers Care Consumer Insight Analyst Name Role Phone Unavailable Primary Care Provider Unavailabl e Social History Tobacco Use Types Packs/Day Years Used Date Smoking Tobacco: Never Assessed Comments Unknown Sex and Gender Information Value Date Recorded Sex Assigned at Not on file Legal Sex Female 12:48 PM CDT Gender Identity Not on file Sexual Orientation Not on file Plan of Treatment Health Maintenance Due Date Last Done Comments DTAP/TDAP/TD VACCINES (1 - Tdap) 1998 HEPATITIS B VACCINES (1 of 3 - 19+ 3-dose series) 1998 HPV/Cotest (21-29) 01/03/2000 CERVICAL CANCER SCREENING 2009 HPV/Cotest (30-65) 2009 PAP SMEAR 2009 BREAST CANCER SCREENING 2019 COLORECTAL SCREENING 01/03/2024 Colorectal Cancer Screening 01/03/2024 FIT-DNA Q 3 years 01/03/2024 FIT/FOBT Q 1 year 01/03/2024 Flex Sig/CT Colonography Q 5 years 01/03/2024 INFLUENZA VACCINE (#1) 2025 HPV VACCINES Aged Out No longer eligi ble based on patient's age to complete this topic
--- NOTE | 2025-04-03 10:53 | XRR_ITS ---
PROCEDURE INFORMATION: Exam: XR Chest Exam date and time: 04/03/2025 11:00 AM Age: 45 years old Clinical indication: Pain; Angina pectoris; Additional info: Chest pain TECHNIQUE: Imaging protocol: Radiologic exam of the chest. Views: 1 view. COMPARISON: CR XR chest 2V* [id number] 11/20/2022 5:27 PM FINDINGS: Tubes, catheters and devices: EKG leads. Cholecystectomy clips. Lungs: Unremarkable. No consolidation. Pleural spaces: Unremarkable. No pleural effusion. No pneumothorax. Heart/Mediastinum: Unremarkable. No cardiomegaly. Bones/joints: Unremarkable. XR/XR chest 1V portable [id number] IMPRESSION: Stable chest. No acute cardiopulmonary pathology.
--- NOTE | 2025-04-03 10:53 | ECG_ITS ---
[facility] Date: 2025-04-03 Pat Name: Elizabeth Carlson Department: Room: Gender: Female Sas Developer: : 1980 Requested By: Antoine Ponce Order Number: [id number] Paras MD: Felice Mercado M.D. Measurements Intervals [place] Rate: 73 P: 22 MD: 149 QRS: 52 QRSD: 74 T: 50 QT: 384 QTc: 424 Interpretive Statements SINUS RHYTHM NONSPECIFIC T-WAVE ABNORMALITY Compared to ECG 05/29/2021 14:57:11 No significant changes Electronically Signed On 04-05-2025 10:26:30 CDT by Felice Mercado M.D. [email or web address]
--- NOTE | 2025-04-03 11:03 | W.ED.CHESTPA ---
HPI - Chest Pain General: Chief Complaint: Chest Pain Stated Complaint: chest pain Time Seen by Provider: 04/03/25 10:53 History of Present Illness: 45-year-old female presents emergency room states she has had considerable difficulty with appetite loss nausea and vomiting over the last year she is lost significant amount of weight she has had extensive workup both locally and at [facility]. She has seen gastroenterology she has had EGD and colonoscopy has not found any significant abnormality. She did not have any difficulty swallowing she just generally does not feel well has some discomfort in her neck on the right side of her chest she has not been terribly short of breath she has not had any fever sweats chills or cough. No history of PE or DVT she is not on any anticoagulants. She has recently began wearing a scopolamine patch for nausea. They worked up for gastroparesis and felt that that was not the cause of her symptoms. Associated symptoms: Deny abdominal pain, dyspnea or fever(s) Related Data Home Medications ?Medication ?Instructions ?Recorded ?Confirmed prenat.vits,yessy,jsk-pfzm-jmkhs 1 tab PO DAILY 03/20/20 01/30/25 erenumab-aooe 70 mg/mL 70 mg SUBCUT .Monthly 11/21/21 01/30/25 subcutaneous auto-injector (Aimovig Autoinjector) ondansetron 4 mg disintegrating 4 mg PO DAILY 10/11/24 01/30/25 tablet cholecalciferol (vitamin D3) 10 8,000 unit PO DAILY 01/30/25 01/30/25 mcg (400 unit) tablet Previous Rx's ?Medication ?Instructions ?Recorded propranolol 20 mg tablet 20 mg PO TID PRN anxiety #90 tabs 08/11/24 topiramate 100 mg tablet 100 mg PO BID #180 tabs 08/11/24 bupropion HCl 300 mg 24 hr tablet, 300 mg PO QAM #90 tabs 01/30/25 extended release (Wellbutrin XL) buspirone 10 mg tablet 10 mg PO BID #180 tabs 01/30/25 trazodone 150 mg tablet 150 mg PO BEDTIME #90 tabs 01/30/25 venlafaxine 150 mg 300 mg (2 x 150 mg) PO DAILY #180 01/30/25 capsule,extended release 24 hr caps (Effexor XR) metoclopramide HCl 10 mg tablet 10 mg PO Q6H PRN nausea and 04/03/25 (Reglan) vomiting #20 tabs Allergies Allergy/AdvReac Type Severity Reaction Status Date / Time adhesive tape Allergy ALGY-Rash Verified 04/03/25 10:48 latex Allergy Unknown Verified 04/03/25 10:48 corn AdvReac Severe ADR-Abdominal Verified 04/03/25 10:48 Pain Review of Systems Const: Denies: fever(s) or chills Card: Denies: chest pain Resp: Denies: dyspnea GI: Denies: abdominal pain : Denies: dysuria, urinary frequency or urinary urgency Musc: Denies: neck pain or back pain Skin/Breast: Denies: rash PFSH ED PFSH: Medical History Psychiatric care Surgical History H/O foot surgery H/O knee surgery History of hysterectomy History of laparoscopic cholecystectomy History of back surgery Social History Smoking and tobacco/nicotine status: former use of tobacco/nicotine Quit status (tobacco/nicotine): has quit using Year quit tobacco: 2013 Second hand smoke exposure: No Alcohol intake: never Substance/Drug Use: never Current gender identity: Female Physical Exam Const: GENERAL APPEARANCE: cooperative ORIENTATION/CONSCIOUSNESS: Yes awake, Yes oriented to person, Yes oriented to place and Yes oriented to time HENMT: COMMON NORMALS: normocephalic, atraumatic and hearing grossly normal bilaterally HEAD & SCALP: normocephalic and atraumatic Resp: COMMON NORMALS: normal respiratory effort, No retractions, No use of accessory muscles and clear to auscultation bilaterally AUSCULTATION: clear to auscultation bilaterally Cardio: COMMON NORMALS: regular rate, regular rhythm and No murmurs present (Cardio) RATE: regular rate RHYTHM: regular rhythm GI: COMMON NORMALS: Soft to palpation and No hepatosplenomegaly present AUSCULTATION: Yes normoactive bowel sounds PALPATION: Yes Soft to palpation, No Tenderness to palpation present (GI), No Guarding due to palpation present (GI) and Yes No hepatosplenomegaly present Extremity: COMMON NORMALS: normal to inspection, capillary refill normal, no clubbing, cyanosis or edema, no calf tenderness and no pedal edema Neuro: SENSORIUM/ORIENTATION: Yes oriented to person, Yes oriented to place and Yes oriented to time Skin: COMMON NORMALS: no rashes or lesions noted GENERAL SKIN EXAM: no rashes or lesions noted Course Vital Signs: Vital signs: Vital Signs Temperature 97.5 F L 04/03/25 10:36 Pulse Rate 80 04/03/25 14:31 Respiratory Rate 16 04/03/25 14:31 Blood Pressure 100/64 04/03/25 14:31 Pulse Oximetry 95 04/03/25 14:31 Oxygen Delivery Me thod Room Air 04/03/25 13:06 MDM - Chest Pain Medical Decision Making Cardiac enzymes negative EKG does not show any acute changes. D-dimer is negative chest x-ray unremarkable. I think the majority of her symptoms are coming in part from her GI issues she has had previously and in the larger part of worsening because of side effects from scopolamine recommend she stop the patch. Electrolytes liver functions and urine all also normal. Will discharge patient home she did receive a liter of fluids 10 of Reglan. I have her use Reglan as needed instead and follow-up with primary care doctor Medical Records I reviewed the patient's medical records. Lab Data I reviewed the patient's lab results. 04/03/25 11:00 04/03/25 11:00 Radiology Impressions Chest X-Ray 04/03/25 10:53 IMPRESSION: Stable chest. No acute cardiopulmonary pathology. Laboratory Results WBC 7.42 10^3/uL (3.29-11.43) 04/03/25 11:00 RBC 4.88 10^6/uL (3.85-5.65) 04/03/25 11:00 Hgb 15.10 g/dL (11.27-16.99) 04/03/25 11:00 Hct 45.4 % (36-47) 04/03/25 11:00 MCV 93.0 fl (85-98) 04/03/25 11:00 MCH 30.9 pg (27-33) 04/03/25 11:00 MCHC 33.3 g/dL (30-55) 04/03/25 11:00 RDW 11.9 % (12.1-15.1) L 04/03/25 11:00 Plt Count 217 10^3/cmm (157-399) 04/03/25 11:00 MPV 11.6 fL (7.4-10.4) H 04/03/25 11:00 Neut % (Auto) 65.3 % 04/03/25 11:00 Lymph % (Auto) 23.0 % 04/03/25 11:00 [place] % (Auto) 6.5 % 04/03/25 11:00 Eos % (Auto) 4.6 % 04/03/25 11:00 Baso % (Auto) 0.5 % 04/03/25 11:00 Neut # (Auto) 4.84 10^3/uL (1.8-7.7) 04/03/25 11:00 Lymph # (Auto) 1.7 10^3/uL (0.8-4.8) 04/03/25 11:00 [place] # (Auto) 0.5 10^3/uL (0.2-0.9) 04/03/25 11:00 Eos # (Auto) 0.3 10^3/uL (0.0-0.8) 04/03/25 11:00 Baso # (Auto) 0.0 10^3/uL (0.0-0.1) 04/03/25 11:00 Nucleated RBC % (auto) 0 % 04/03/25 11:00 Nucleated RBCs # 0.0 /100WBC 04/03/25 11:00 D-Dimer <= 0.27 ug/mLFEU (0-0.59) 04/03/25 11:00 Sodium 138 mmol/L (136-145) 04/03/25 11:00 Potassium 3.6 mmol/L (3.5-5.1) 04/03/25 11:00 Chloride 102 mmol/L (98-107) 04/03/25 11:00 Carbon Dioxide 21 mmol/L (22-29) L 04/03/25 11:00 Anion Gap 18.6 (5-19) 04/03/25 11:00 BUN 14 mg/dL (6-20) 04/03/25 11:00 Creatinine 0.9 mg/dL (0.5-0.9) 04/03/25 11:00 GFR Calculation 67.4 mL/min (90-130) L 04/03/25 11:00 Glucose 88 mg/dL (65-115) 04/03/25 11:00 Calculated Osmolality 286 mOsm/kg (285-295) 04/03/25 11:00 Calcium 9.6 mg/dL (8.5-10.5) 04/03/25 11:00 Total Bilirubin 0.7 mg/dL (0.15-1.2) 04/03/25 11:00 AST 16 U/L (0-32) 04/03/25 11:00 ALT 12 U/L (0-33) 04/03/25 11:00 Alkaline Phosphatase 89 U/L (35-105) 04/03/25 11:00 Troponin T Baseline < 6 ng/L (0-10) 04/03/25 11:00 Troponin T 120 Minute < 6.0 ng/L (0-10) 04/03/25 12:36 Delta Troponin T 0 ABS# (0-10) 04/03/25 12:36 Total Protein 7.4 g/dL (6.6-8.7) 04/03/25 11:00 Albumin 4.7 g/dL (3.5-5.2) 04/03/25 11:00 Globulin 2.7 g/dL (1.3-4.6) 04/03/25 11:00 Urine Color Yellow (Yellow) 04/03/25 11:52 Urine Appearance Turbid (CLEAR) A 04/03/25 11:52 Urine pH 8.0 (5-7) A 04/03/25 11:52 Ur Specific [place] 1.018 (1.005-1.030) 04/03/25 11:52 Urine Protein Negative (Negative) 04/03/25 11:52 Urine Glucose (UA) Negative (Normal) 04/03/25 11:52 Urine Ketones Trace (Negative) 04/03/25 11:52 Urine Blood Negative (Negative) 04/03/25 11:52 Urine Nitrate Negative (Negative) 04/03/25 11:52 Urine Bilirubin Negative (Negative) 04/03/25 11:52 Urine Urobilinogen 1.0 mg/dL (Negative) 04/03/25 11:52 Ur Leukocyte Esterase 1+ (Negative) A 04/03/25 11:52 Urine RBC 0-2 /hpf (0-2) 04/03/25 11:52 Urine WBC 0-5 /hpf (0-5) 04/03/25 11:52 Ur Squamous Epith Cells 0-5 /hpf (0-5) 04/03/25 11:52 Amorphous Sediment Not Reportable 04/03/25 11:52 Urine Bacteria None seen /hpf (NONE) 04/03/25 11:52 Hyaline Casts 0-4 /lpf H 04/03/25 11:52 All radiology interpretation(s) finalized by discharge EKG Data EKG 1: Interpretation: EKG 729 2025-07-[address] elevation abnormalities rate of 73 NV interval 149 QTc 424. No change from EKG 05/29/2021 EKG 2: Interpretation: EKG 04/03/2025 1257 normal sinus rhythm rate of 74 NV interval 146 QTc [address] changes. Unchanged from EKG done earlier today. Discharge Plan Discharge Patient Disposition: Home Clinical Impression: Medication side effects Condition: Stable Prescriptions: New metoclopramide HCl [Reglan] 10 mg tablet 10 mg PO Q6H PRN (Reason: nausea and vomiting) Qty: 20 0RF No Action prenat.vits,yessy,cye-jwad-pbhto Tablet 1 tab PO DAILY Aimovig Autoinjector 70 mg/mL auto-injector 70 mg SUBCUT .Monthly bupropion HCl [Wellbutrin XL] 300 mg tablet extended release 24 hr 300 mg PO QAM Qty: 90 3RF buspirone 10 mg tablet 10 mg PO BID Qty: 180 3RF trazodone 150 mg tablet 150 mg PO BEDTIME Qty: 90 3RF venlafaxine [Effexor XR] 150 mg capsule,extended release 24hr 300 mg PO DAILY Qty: 180 3RF cholecalciferol (vitamin D3) 10 mcg (400 unit) tablet 8,000 unit PO DAILY propranolol 20 mg tablet 20 mg PO TID PRN (Reason: anxiety) Qty: 90 2RF topiramate 100 mg tablet 100 mg PO BID Qty: 180 1RF ondansetron 4 mg tablet,disintegrating 4 mg PO DAILY Discharge Orders: Discharge ED (Routine); Ordered 04/03/25 Ordered By: Antoine Hooks Referrals: Sana Carrasco DO [Primary Care Provider, ELEMENTARY SCHOOL TEACHER] Discharge Diet: Advance as tolerated Discharge Activity: Increase activity as tolerated Patient Instructions: Opioid Safety, Pain Management, Patient Portal & Elly Instructions Activity Restrictions/Additional Instructions: Thank you for choosing [facility] for your healthcare needs today. It is very important that you follow up as instructed or that you return to the Emergency Department should you have concerns or if your condition changes or worsens in any way. You were seen in the emergency room with complaints of chest discomfort, nausea weakness dizziness. Your cardiac enzymes EKG and D-dimer were all normal chest x-ray was normal your electrolytes kidney function liver functions were normal as well. Would recommend that you stop the scopolamine patch suspect a lot of your symptoms are side effects of the scopolamine patch. Gave you Reglan to use and lieu of this. Follow-up with your doctor. Print Language: Tajik Coding Level of Care Code ED Makeup Instructor for Alyssa Pierce
[2025-04-03 11:11] LABS: Hematocrit 45.4 % (36-47); Hemoglobin 15.10 g/dL (11.27-16.99); Mean Corpuscular HGB Conc 33.3 g/dL (30-55); Mean Corpuscular Hemoglobin 30.9 pg (27-33); Mean Corpuscular Volume 93.0 fl (85-98); Nucleated Red Blood Cells % 0 %; Platelet Count 217 10^3/cmm (157-399); Red Blood Count 4.88 10^6/uL (3.85-5.65); White Blood Count 7.42 10^3/uL (3.29-11.43)
[2025-04-03 11:28] LABS: Troponin(5th) Baseline < 6 ng/L (0-10)
[2025-04-03 11:35] LABS: Alanine Aminotransferase 12 U/L (0-33); Albumin Level 4.7 g/dL (3.5-5.2); Alkaline Phosphatase 89 U/L (35-105); Aspartate Amino Transferase 16 U/L (0-32); Blood Urea Nitrogen 14 mg/dL (6-20); Calcium 9.6 mg/dL (8.5-10.5); Carbon Dioxide 21 mmol/L (22-29); Chloride 102 mmol/L (98-107); Creatinine Clr Calc Pharmacy 73.0898; Globulin 2.7 g/dL (1.3-4.6); Glucose 88 mg/dL (65-115); Osmolality Calculated 286 mOsm/kg (285-295); Sodium 138 mmol/L (136-145); Total Protein 7.4 g/dL (6.6-8.7)
[2025-04-03 11:36] LABS: Anion Gap 18.6 (5-19); Potassium 3.6 mmol/L (3.5-5.1)
[2025-04-03 12:03] LABS: Glucose Urine UA Negative (Normal); Nitrate Urine Negative (Negative); Specific Gravity, Urine 1.018 (1.005-1.030)
[2025-04-03 12:08] LABS: Add Urine Microscopic? YES
--- NOTE | 2025-04-03 12:53 | ECG_ITS ---
[email or web address] Pat Name: Elizabeth Carlson Department: Room: Gender: Female Line Service Person: : 1980 Requested By: Antoine Ponce Order Number: [id number] Reading MD: RENEE URBANO Measurements Intervals [place] Rate: 74 P: 5 MN: 146 QRS: 41 QRSD: 86 T: 24 QT: 392 QTc: 437 Interpretive Statements SINUS RHYTHM NONSPECIFIC T-WAVE ABNORMALITY Compared to ECG 04/03/2025 11:01:28 No significant changes Electronically Signed On 04-05-2025 22:23:08 CDT by RENEE URBANO [email or web address] [id number]
[2025-04-03 12:57] LABS: Troponin 5 2HR < 6.0 ng/L (0-10); Troponin 5 2HR Delta 0 ABS# (0-10)
[2025-04-03] MEDS: metoclopramide 5 mg/mL SDV 2 mL 10 MG IVP (13:52)
== END 2025-04-03 14:57 | disposition home or self-care (01) ==
PROVIDERS: Emergency Provider Family Medicine; PCP Family Medicine
DX: R11.2 Nausea with vomiting, unspecified (principal); T44.3X5A Adverse effect of other parasympatholytics [anticholinergics and antimuscarinics] and spasmolytics, initial encounter; X58.XXXA Exposure to other specified factors, initial encounter; Z87.891 Personal history of nicotine dependence
CPT/HCPCS: 36415; 71045; 80053; 81001; 84484; 85025; 85378; 93005; 96361; 96374; 99285; J2765; J7030

== ENCOUNTER 2025-06-13 15:49 | Outpatient (CLI) | payer OTHER, SELFPAY ==
--- NOTE | 2025-06-13 16:12 | MR_ITS ---
WS: [id number] MRI BRAIN WITH AND WITHOUT CONTRAST HISTORY: OTHER LOCALIZED VISUAL DEFECT, RIGHT EYE COMPARISON: 02/18/2017 TECHNIQUE: Multiplanar imaging performed through the brain with MultiHance 12 ml's IV. No acute infarcts are seen. Ralph-white matter differentiation is well preserved. No significant atrophy. There is a single subcortical white matter lesion in the posterior RIGHT frontal lobe which was present on the prior study from 2017. Visualized orbits and globes are negative. No signal abnormality along the corpus callosum or pericallosal white matter. No susceptibility artifacts or prior lacunar infarcts. Ventricles and extra-axial spaces are normal. Clivus and pituitary gland are normal. Visualized posterior fossa and brainstem are also normal. Postcontrast images are negative for masses or vascular malformations. Dural venous sinuses are normal. Paranasal sinuses: Well aerated with no significant disease. Mastoid air cells: Normal. Calvarium and scalp: Normal. MR/MR head wo/w con [id number] IMPRESSION: 1. No acute infarct, hemorrhage or enhancing masses. 2. Stable single white matter lesion in the posterior RIGHT frontal lobe nancy x since 2017. 3. No pericallosal white matter lesions or evidence for demyelination. 4. No enhancing masses or vascular malformations.
[2025-06-13] MEDS: gadobenate dimeglumine 20 mL vial 12 ML IV (16:50)
== END 2025-06-13 15:50 | disposition home or self-care (01) ==
LOC: RAD 15:50
PROVIDERS: PCP Family Medicine; Visit Provider Family Medicine
DX: H53.451 Other localized visual field defect, right eye (principal); H53.9 Unspecified visual disturbance; R90.82 White matter disease, unspecified
CPT/HCPCS: 70553

== ENCOUNTER → 2025-07-24 08:33 | Outpatient (BNVA) | payer OTHER, SELFPAY | PROVIDERS: PCP Family Medicine; Referring Provider Family Medicine; Visit Provider Internal Medicine Rheumatology | DX: M05.79 Rheumatoid arthritis with rheumatoid factor of multiple sites without organ or systems involvement (principal); Z79.899 Other long term (current) drug therapy; Z71.85 Encounter for immunization safety counseling; M81.0 Age-related osteoporosis without current pathological fracture; M25.50 Pain in unspecified joint | CPT/HCPCS: 36415; 80076; 82306; 82565; 85025; 85651; 86140; 86480; 86704; 86803; 87340; 99204 ==

== ENCOUNTER 2025-09-04 11:01 | Outpatient (CLI) | payer OTHER, SELFPAY ==
[2025-09-04 11:47] LABS: Hematocrit 39.6 % (36-47); Hemoglobin 13.00 g/dL (11.27-16.99); Mean Corpuscular HGB Conc 32.8 g/dL (30-55); Mean Corpuscular Hemoglobin 30.7 pg (27-33); Mean Corpuscular Volume 93.6 fl (85-98); Nucleated Red Blood Cells % 0 %; Platelet Count 172 10^3/cmm (157-399); Red Blood Count 4.23 10^6/uL (3.85-5.65); White Blood Count 5.46 10^3/uL (3.29-11.43)
[2025-09-04 12:11] LABS: Alanine Aminotransferase 9 U/L (0-33); Albumin Level 4.3 g/dL (3.5-5.2); Alkaline Phosphatase 81 U/L (35-105); Aspartate Amino Transferase 12 U/L (0-32); Globulin 1.9 g/dL (1.3-4.6); Total Protein 6.2 g/dL (6.6-8.7)
== END 2025-09-04 11:02 | disposition home or self-care (01) ==
PROVIDERS: PCP Nurse Practitioner; Visit Provider Internal Medicine Rheumatology
DX: Z79.899 Other long term (current) drug therapy (principal); M05.79 Rheumatoid arthritis with rheumatoid factor of multiple sites without organ or systems involvement
CPT/HCPCS: 36415; 80076; 82565; 85025